=== PATIENT | female | born 1945 | race Caucasian/White ===

== ENCOUNTER 2020-03-31 10:12 | Emergency (ER) | payer MEDICARE, SELFPAY ==
[2020-03-31 10:47] VITALS: BP 158/68; PULSE 93; RESP 18; TEMP 36.9; O2SAT 96; BMI 25.7
--- NOTE | 2020-03-31 12:10 | ED.BACK ---
HPI - Back Pain/Injury General Chief Complaint: Back Pain/Injury Stated Complaint: BACK PAIN Time Seen by Provider: 03/31/20 11:50 Source: patient Mode of arrival: ambulatory Limitations: no limitations History of Present Illness HPI Narrative: 74-year-old female presents to emergency department for evaluation of left lower back pain. The patient states that morning (3 days prior to evaluation) she was at home, turned and had sudden onset of left lower back pain. She states that since that time the pain has been a constant, dull, throbbing a which is worse with movement. The pain does radiate to her left buttocks but does not radiate down her left leg. She denies numbness or weakness of the left leg. The patient states that she took Aleve 1 pill twice a day for a day with no relief of her pain. She states that today she took extra-strength Tylenol without any relief her pain. She has been using heat with no relief. She denied fever, chills, chest pain, shortness of breath, rash. Related Data Home Medications Medication Instructions Recorded Confirmed flu vacc 2020-21(65yr ml IM 02/24/20 02/24/20 up)-MF59C(PF) 60 mcg(15 mcgx4)/0.5 mL IM syringe tretinoin 0.025 % topical cream applic TOPICAL BEDTIME PRN 02/24/20 02/24/20 Previous Rx's Medication Instructions Recorded azithromycin 250 mg tablet See Rx Instructions PO .COMPLEX #6 01/27/20 tab amlodipine 2.5 mg tablet 2.5 mg PO DAILY #90 tab 03/25/20 Allergies Allergy/AdvReac Type Severity Reaction Status Date / Time No Known Allergies Allergy Verified 03/31/20 10:49 Review of Systems Review of Systems: Yes all other systems are reviewed and are negative Constitutional: Constitutional: Reports as per HPI Eyes: Eyes: Reports as per HPI ENT: Reports as per HPI Cardiovascular: Cardiovascular: Reports as per HPI Respiratory: Respiratory: Reports as per HPI Gastrointestinal: Gastrointestinal: Reports as per HPI Genitourinary: Genitourinary: Reports as per HPI Musculoskeletal: Musculoskeletal: Reports as per HPI Integumentary/Breasts: Skin/Breast: Reports as per HPI Neurologic: Reports as per HPI and Reports Abnormal speech present Psychiatric: Psychiatric: Reports as per HPI Allergic/Immunologic: Allergic/Immunologic: Reports as per HPI PMF Past Medical History Attestation statement: The following information was validated with the patient. [facility] Narrative: Patient has a history of hypertension, high cholesterol and GERD. She denies tobacco, alcohol and drug use., Medical History High blood pressure Social History Social History Advance Directives: No Advance Directives Information Provided: Yes Physical Exam Vital Signs: Vital Signs: Last Vital Signs Temp 98.5 F 03/31/20 10:47 Pulse 93 03/31/20 10:47 Resp 18 03/31/20 10:47 BP 158/68 H 03/31/20 10:47 Pulse Ox 96 03/31/20 10:47 Body Mass Index 25.7 Const: General: cooperative and healthy appearing Nutritional Appearance: average body habitus Orientation/consciousness: oriented to person and oriented to place Limitations: no limitations HENMT: Head: Yes normal to inspection, Yes normocephalic and Yes atraumatic Ears: external ears normal General nose exam: Normal external nose present Face and sinus: Yes normal facial exam Mouth: Normal oral and palatal mucosa present Throat: Yes posterior oropharynx normal Eyes: General: appearance normal, both eyes and all related structures Alignment and Position: alignment normal Periorbital: periorbital findings normal Eyelids: Yes eyelids normal Conjunctivae: conjunctivae normal Sclerae: sclerae normal Pupils: Equal, round and reactive pupils present Direct Ophthalmoscopy: normal light reflex Neck: Neck: Yes normal visual inspection and Yes supple Thyroid: Thyroid normal Chest: Chest palpation & inspection: normal inspection of the chest and normal palpation of entire chest wall Resp: Effort & Inspection: normal respiratory effort and able to speak in complete sentences Auscultation: clear to auscultation bilaterally, no crackles, no rales and no rhonchi Cardio: Rate: regular rate Rhythm: regular rhythm Heart sounds: S1 normal heart sound present, S2 normal heart sound present and no murmurs GI: Inspection: Yes normal to inspection Palpation (GI): Soft to palpation, nontender and no guarding Auscultation: normal bowel sounds : General: Yes no CVA tenderness Back/Spine/Pelvis: Back: no CVA tenderness Cervical Spine: normal cervical lordosis Thoracic/Lumbar Spine: thoracic and lumbar spine normal to inspection, straight leg raise negative bilaterally and paraspinal muscle tenderness on the left in the lower lumbar Skin: General skin exam: no rashes or lesions noted Lesions: no lesions Rashes: no rashes Trauma: no lacerations or abrasions Neuro: General: oriented to person and oriented to place Cranial nerves: Yes CN's II-XII intact bilaterally and Yes Equal, round and reactive pupils present Cognition (Neuro): normal cognition Speech: Abnormal speech present Motor exam (neuro): 5/5 motor strength present throughout Extrem: General: Yes normal to inspection and Yes full ROM Psych: Appearance: grossly normal and well kempt Mental Status: mental status grossly normal Speech and movement: Normal speech and movement present Affect: normal affect Attitude: cooperative Thought process: Normal thought process present Thought content: Normal thought content present Insight: Good insight present (Psych) Judgement: Good judgement present (Psych) Course Course Course Narrative: 74-year-old female who presents emergency department for evaluation of left lower back pain times 3 days, the pain is worse with movement. The patient had no numbness or weakness of her lower extremity and no signs of systemic illness. Her exam did reveal tenderness with palpation of the paraspinal muscles over the lumbar sacral area. Patient's presentation is consistent with muscle strain and I did discuss this with her. She was advised to take Aleve 1 pill twice a day and extra-strength Tylenol 2 pills every 4-6 hours as needed for pain. She was advised to use ice and heat. She was advised to follow up with the doctor in 2 days and return to the emergency department if her symptoms get worse or strokes in the symptoms are concerning to her. Discharge Plan Discharge Clinical Impression: Strain of lumbar region Patient Disposition: Home, Self-Care Instructions: Low Back Strain (ED) Additional Instructions: Apply ice for 15 minutes, wait 15 minutes and then apply heat for 15 minutes, repeat this every 4 hours for the next 1-2 days to help reduce the pain in your lower back. Take Aleve 1 pill twice a day for 3-4 days to help reduce the inflammation in your back muscles. Also take extra-strength Tylenol 500 mg pills, 2 pills every 4-6 hours for pain in her lower back. Buy [id number] lidocaine patches Prescriptions: No Action azithromycin 250 mg tablet See Rx Instructions PO .COMPLEX Qty: 6 RF: 0 amlodipine 2.5 mg tablet 2.5 mg PO DAILY Qty: 90 RF: 1 Fluad Quad 2020-(65y up)(PF) 60 mcg (15 mcg x 4)/0.5 mL syringe IM RF: 0 tretinoin 0.025 % cream topical BEDTIME PRN (Reason: itch) RF: 0
== END 2020-03-31 12:30 | disposition home or self-care (01) ==
PROVIDERS: Emergency Provider Emergency Medicine Emergency Medical Services; PCP Internal Medicine
DX: S39.012A Strain of muscle, fascia and tendon of lower back, initial encounter (principal); X50.1XXA Overexertion from prolonged static or awkward postures, initial encounter; I10 Essential (primary) hypertension; Y93.9 Activity, unspecified; Y92.019 Unspecified place in single-family (private) house as the place of occurrence of the external cause; Y99.9 Unspecified external cause status
CPT/HCPCS: 99283

== ENCOUNTER 2020-04-12 07:49 | Outpatient (REF) | payer MEDICARE, SELFPAY ==
[2020-04-12 08:29] LABS: MANUAL DIFF FLAG NO
[2020-04-12 08:34] LABS: White Blood Count 7.3 X10*3/uL (4.8-10.8)
[2020-04-12 08:35] LABS: Basophils Absolute Auto 0.1 X10*3/uL (0.0-0.2); Basophils Percent Auto 0.7 % (0-2); Eosinophils Absolute Auto 0.2 X10*3/uL (0.0-0.4); Eosinophils Percent Auto 2.7 % (0-4); Hematocrit 40.7 % (37-47); Hemoglobin 13.4 g/dl (12.0-16.0); Imm Gran Abs Auto 0.01 X10*3/uL (0.00-0.03); Imm Gran Pct Auto 0.1 % (0.0-0.4); Lymphocytes Absolute Auto 1.9 X10*3/uL (1.2-4.9); Lymphocytes Percent Auto 26.5 % (20-40); Mean Corpuscular HGB Conc 32.9 g/dl (31.0-35.0); Mean Corpuscular Hemoglobin 30.7 pg (27.0-33.0); Mean Corpuscular Volume 93.1 fL (80-98); Mean Platelet Volume 9.5 fL (9.4-12.3); Monocytes Absolute Auto 0.5 X10*3/uL (0.1-1.2); Monocytes Percent Auto 7.2 % (2-11); Neutrophils Absolute Auto 4.6 X10*3/uL (2.0-8.3); Neutrophils Percent Auto 62.8 % (45-73); Platelet Count 392 X10*3/uL (160-400); Red Blood Count 4.37 X10*6/uL (4.20-5.50); Red Cell Distribution Width 11.6 % (11.0-16.0)
[2020-04-12 08:40] LABS: Glucose Urine UA NEG (NEG); Leukocyte Esterase Urine TRACE (NEG); Nitrite Urine NEG (NEG); Urine Blood TRACE (NEG); Urine Ketones NEG (NEG); Urine Protein NEG (NEG-TRACE)
[2020-04-12 08:44] LABS: Appearance Urine CLEAR; Color Urine YELLOW
[2020-04-12 08:44] LABS: Estimated Average Glucose 105 mg/dL; Hemoglobin A1c % 5.3 %
[2020-04-12 08:53] LABS: RBC Urine 0-2 /HPF (0); Squamous Epithelial Cell Urine TRACE /LPF; WBC Urine 0-2 /HPF (0-4)
[2020-04-12 09:03] LABS: Alanine Aminotransferase 19 U/L (0-31); Albumin Level 4.2 g/dL (3.5-5.0); Alkaline Phosphatase 87 U/L (39-117); Anion Gap 14 (12-20); Aspartate Amino Transferase 20 U/L (5-31); Bilirubin Total 0.5 mg/dL (0.0-1.0); Blood Urea Nitrogen 16 mg/dL (9-16); Calcium 9.2 mg/dL (8.4-10.2); Carbon Dioxide 28 mmol/L (22-29); Chloride 101 mmol/L (96-108); Cholesterol 197 mg/dL; Estimated Glomerular Filt Rate > 60; Glucose Fasting 96 mg/dL (60-99); HDL Cholesterol 49 mg/dL; LDL Cholesterol Calculated 120 mg/dl; Potassium 4.8 mmol/l (3.3-5.1); Sodium 138 mmol/L (135-145); Total Protein 7.5 g/dL (6.5-8.0); Triglycerides 144 mg/dL
== END 2020-04-12 07:50 | disposition home or self-care (01) ==
LOC: HO.LAB 07:49
PROVIDERS: PCP Internal Medicine; Visit Provider Internal Medicine
DX: I10 Essential (primary) hypertension (principal); E78.2 Mixed hyperlipidemia; R73.01 Impaired fasting glucose; D50.9 Iron deficiency anemia, unspecified; K21.9 Gastro-esophageal reflux disease without esophagitis; E66.3 Overweight
CPT/HCPCS: 36415; 80053; 80061; 81001; 83036; 84443; 85025; 87086

== ENCOUNTER 2021-04-25 08:12 | Outpatient (REF) | payer MEDICARE, SELFPAY ==
[2021-04-25 08:44] LABS: MANUAL DIFF FLAG NO
[2021-04-25 09:08] LABS: Appearance Urine CLEAR; Color Urine STRAW; Glucose Urine UA NEG (NEG); Leukocyte Esterase Urine NEG (NEG); Nitrite Urine NEG (NEG); UACC Culture Trigger NO; Urine Blood TRACE (NEG); Urine Ketones NEG (NEG); Urine Protein NEG (NEG-TRACE)
[2021-04-25 09:12] LABS: Basophils Percent Auto 0.6 % (0-2); Eosinophils Absolute Auto 0.2 X10*3/uL (0.0-0.4); Eosinophils Percent Auto 2.2 % (0-4); Hematocrit 40.3 % (37.0-47.0); Hemoglobin 13.4 g/dl (12.0-16.0); Imm Gran Abs Auto 0.03 X10*3/uL (0.00-0.03); Imm Gran Pct Auto 0.4 % (0.0-0.4); Lymphocytes Absolute Auto 1.8 X10*3/uL (1.2-4.9); Lymphocytes Percent Auto 24.5 % (20-40); Mean Corpuscular HGB Conc 33.3 g/dl (31.0-35.0); Mean Corpuscular Volume 93.3 fL (80.0-98.0); Mean Platelet Volume 9.8 fL (9.4-12.3); Monocytes Absolute Auto 0.5 X10*3/uL (0.1-1.2); Monocytes Percent Auto 7.3 % (2-11); Neutrophils Absolute Auto 4.6 x10*3/uL (2.0-8.3); Platelet Count 347 X10*3/uL (160-400); Red Blood Count 4.32 X10*6/uL (4.20-5.50); Red Cell Distribution Width 11.7 % (11.0-16.0); White Blood Count 7.1 X10*3/uL (4.8-10.8)
[2021-04-25 09:18] LABS: Squamous Epithelial Cell Urine TRACE /LPF
[2021-04-25 09:19] LABS: RBC Urine 0-2 /HPF (0); WBC Urine 0-2 /HPF (0-4)
[2021-04-25 09:32] LABS: Alanine Aminotransferase 11 U/L (0-31); Alkaline Phosphatase 96 U/L (39-117); Anion Gap 12 (12-20); Aspartate Amino Transferase 15 U/L (5-31); Bilirubin Total 0.5 mg/dL (0.0-1.0); Blood Urea Nitrogen 14 mg/dL (9-16); Calcium 9.6 mg/dL (8.4-10.2); Carbon Dioxide 29 mmol/L (22-29); Chloride 105 mmol/L (96-108); Cholesterol 212 mg/dL; Estimated Glomerular Filt Rate > 60; Glucose Fasting 100 mg/dL (60-99); HDL Cholesterol 46 mg/dL; LDL Cholesterol Calculated 137 mg/dl; Potassium 4.7 mmol/L (3.3-5.1); Sodium 141 mmol/L (135-145); Total Protein 7.4 g/dL (6.5-8.0); Triglycerides 149 mg/dL
[2021-04-25 09:56] LABS: TSH reflex Free T4 2.11 uIU/mL (0.32-4.0); Vitamin D 25-OH Total 47.3 ng/mL (>30)
== END 2021-04-25 08:13 | disposition home or self-care (01) ==
LOC: HO.LAB 08:12
PROVIDERS: PCP Internal Medicine; Visit Provider Internal Medicine
DX: I10 Essential (primary) hypertension (principal); K21.9 Gastro-esophageal reflux disease without esophagitis; E78.00 Pure hypercholesterolemia, unspecified; E66.3 Overweight; E55.9 Vitamin D deficiency, unspecified; M85.80 Other specified disorders of bone density and structure, unspecified site
CPT/HCPCS: 36415; 80053; 80061; 81001; 82306; 84443; 85025

== ENCOUNTER 2021-05-09 10:21 | Outpatient (REF) | payer MEDICARE, SELFPAY ==
--- NOTE | ~2021-05-09 | XR_ITS ---
EXAMINATION: XR KNEE, RIGHT XR KNEE, LEFT CLINICAL INFORMATION: Effusion COMPARISON: None TECHNIQUE: 4 views of each knee FINDINGS: Left knee: No fracture or subluxation. Compartmental joint spaces are maintained. Small marginal osteophytes of the patellofemoral compartment. Enthesophyte formation of the patella. No joint effusion. Right knee: No fracture or subluxation. Mild medial compartment joint space narrowing. Enthesophyte formation of the patella with small marginal osteophytes. No joint effusion. XR/XR knee RT 3V IMPRESSION: No joint effusion. Mild degenerative changes of the knees as above.
--- NOTE | ~2021-05-09 | XR_ITS ---
EXAMINATION: XR KNEE, RIGHT XR KNEE, LEFT CLINICAL INFORMATION: Effusion COMPARISON: None TECHNIQUE: 4 views of each knee FINDINGS: Left knee: No fracture or subluxation. Compartmental joint spaces are maintained. Small marginal osteophytes of the patellofemoral compartment. Enthesophyte formation of the patella. No joint effusion. Right knee: No fracture or subluxation. Mild medial compartment joint space narrowing. Enthesophyte formation of the patella with small marginal osteophytes. No joint effusion. XR/XR knee LT 3V IMPRESSION: No joint effusion. Mild degenerative changes of the knees as above.
== END 2021-05-09 10:22 | disposition home or self-care (01) ==
LOC: HO.XRAY 10:21
PROVIDERS: PCP Internal Medicine; Visit Provider Internal Medicine
DX: M25.461 Effusion, right knee (principal); M25.462 Effusion, left knee
CPT/HCPCS: 73562

== ENCOUNTER 2022-01-14 08:08 | Outpatient (REF) | payer MEDICARE, SELFPAY ==
[2022-01-14 09:03] LABS: Alanine Aminotransferase 10 U/L (0-31); Alkaline Phosphatase 92 U/L (39-117); Anion Gap 13 (12-20); Aspartate Amino Transferase 15 U/L (5-31); Bilirubin Total 0.4 mg/dL (0.0-1.0); Blood Urea Nitrogen 13 mg/dL (9-16); Calcium 9.3 mg/dL (8.4-10.2); Carbon Dioxide 29 mmol/L (22-29); Chloride 105 mmol/L (96-108); Cholesterol 215 mg/dL; Estimated Glomerular Filt Rate > 60; Glucose Fasting 101 mg/dL (60-99); HDL Cholesterol 44 mg/dL; LDL Cholesterol Calculated 130 mg/dl; Potassium 4.6 mmol/L (3.3-5.1); Sodium 142 mmol/L (135-145); Total Protein 7.1 g/dL (6.5-8.0); Triglycerides 207 mg/dL
[2022-01-14 14:43] LABS: Appearance Urine Clear; Color Urine Yellow; Glucose Urine UA Negative (Negative); Leukocyte Esterase Urine Negative (Negative); Nitrite Urine Negative (Negative); PH 5.5 (5.0-9.0); Specific Gravity - Urine <= 1.005 (1.005-1.025); Urine Blood Negative (Negative); Urine Ketones Negative (Negative); Urine Protein Negative (Neg-Trace)
== END 2022-01-14 08:09 | disposition home or self-care (01) ==
LOC: HO.LAB 08:08
PROVIDERS: PCP Internal Medicine; Visit Provider Internal Medicine
DX: I10 Essential (primary) hypertension (principal); E78.00 Pure hypercholesterolemia, unspecified
CPT/HCPCS: 36415; 80053; 80061; 81003

== ENCOUNTER 2022-08-13 08:05 | Outpatient (REF) | payer MEDICARE, SELFPAY ==
[2022-08-13 08:28] LABS: MANUAL DIFF FLAG NO
[2022-08-13 08:43] LABS: Basophils Absolute Auto 0.1 X10*3/uL (0.0-0.2); Basophils Percent Auto 0.7 % (0-2); Eosinophils Absolute Auto 0.2 X10*3/uL (0.0-0.4); Eosinophils Percent Auto 2.7 % (0-4); Hematocrit 40.1 % (37.0-47.0); Hemoglobin 13.5 g/dl (12.0-16.0); Imm Gran Abs Auto 0.01 X10*3/uL (0.00-0.03); Imm Gran Pct Auto 0.1 % (0.0-0.4); Lymphocytes Percent Auto 26.7 % (20-40); Mean Corpuscular HGB Conc 33.7 g/dl (31.0-35.0); Mean Corpuscular Hemoglobin 31.5 pg (27.0-33.0); Mean Corpuscular Volume 93.7 fL (80.0-98.0); Mean Platelet Volume 9.6 fL (9.4-12.3); Monocytes Absolute Auto 0.6 X10*3/uL (0.1-1.2); Monocytes Percent Auto 7.5 % (2-11); Neutrophils Absolute Auto 4.6 x10*3/uL (2.0-8.3); Neutrophils Percent Auto 62.3 % (45-73); Platelet Count 328 X10*3/uL (160-400); Red Blood Count 4.28 X10*6/uL (4.20-5.50); Red Cell Distribution Width 11.8 % (11.0-16.0); White Blood Count 7.3 X10*3/uL (4.8-10.8)
[2022-08-13 09:48] LABS: Alanine Aminotransferase 16 U/L (0-31); Albumin Level 4.1 g/dL (3.5-5.0); Alkaline Phosphatase 97 U/L (39-117); Anion Gap 11 (12-20); Aspartate Amino Transferase 17 U/L (5-31); Bilirubin Total 0.5 mg/dL (0.0-1.0); Blood Urea Nitrogen 17 mg/dL (9-16); Calcium 9.6 mg/dL (8.4-10.2); Carbon Dioxide 30 mmol/L (22-29); Chloride 107 mmol/L (96-108); Cholesterol 141 mg/dL; Estimated Glomerular Filt Rate > 60; Glucose Fasting 103 mg/dL (60-99); HDL Cholesterol 44 mg/dL; LDL Cholesterol Calculated 66 mg/dl; Potassium 5.1 mmol/L (3.3-5.1); Sodium 143 mmol/L (135-145); Triglycerides 157 mg/dL
[2022-08-13 09:56] LABS: TSH reflex Free T4 2.09 uIU/mL (0.32-4.0)
== END 2022-08-13 08:06 | disposition home or self-care (01) ==
LOC: HO.LAB 08:05
PROVIDERS: PCP Internal Medicine; Visit Provider Internal Medicine
DX: E78.00 Pure hypercholesterolemia, unspecified (principal); I10 Essential (primary) hypertension
CPT/HCPCS: 36415; 80053; 80061; 84443; 85025

== ENCOUNTER 2022-09-03 08:53 | Outpatient (REF) | payer MEDICARE, SELFPAY ==
--- NOTE | ~2022-09-03 | MM_ITS ---
EXAMINATION: BONE DENSITOMETRY CLINICAL INDICATION: Menopausal and female climacteric states. COMPARISON: Previous BD dated 10/30/2017 and baseline BD dated 09/03/2006. TECHNIQUE: Using a [employer] DXA System (software version: 13.1) manufactured by [employer], dual-energy x-ray absorptiometry was performed of the lumbar spine and left hip. The images are of good technical quality. Summary results are attached. FINDINGS: AP SPINE L1-L4: Current: BMD 1.291 g/cm2, Z-score 2.4, T-score 0.9, normal, 1.2% decrease from previous, 5.2% decrease from baseline (<5% change is not significant). Prior: BMD 1.307 g/cm2. Baseline: BMD 1.362 g/cm2. LEFT FEMUR, NECK: Current: BMD 0.717 g/cm2, Z-score -0.4, T-score -2.3, osteopenia. Prior: BMD 0.855 g/cm2. Baseline: BMD 0.905 g/cm2. LEFT FEMUR, TOTAL: Current: BMD 0.860 g/cm2, Z-score 0.5, T-score -1.2, osteopenia, 12.9% decrease from previous, 18.4% decrease from baseline (<5% change is not significant). Prior: BMD 0.987 g/cm2. Baseline: BMD 1.054 g/cm2. IDENTIFIED RISK FACTORS: Menopause. HISTORY OF FRACTURE: None listed. MEDICATIONS: Multivitamin. MM/XR DEXA axial skeleton IMPRESSION: 1. DIAGNOSIS: Osteopenia based on the lowest T-score value of -2.3 in the femoral neck applying World Health Organization criteria. 2. 10-YEAR FRACTURE RISK PREDICTION, FRAX: Major osteoporotic fracture (clinical spine, forearm, hip or shoulder) 17.2%. Hip fracture 5.5%. 3. Treatment Recommendations: NOF guidelines recommend consideration for treatment in postmenopausal women and men age 50 and older presenting with the following: -A hip or vertebral (clinical or morphometric) fracture. -T-score less than or equal to -2.5 at the femoral neck or spine after appropriate evaluation to exclude secondary causes. -Low bone mass at the hip or spine and a 10-year fracture probability by FRAX of greater than or equal to 3% for hip fracture or greater than or equal to 20% for major osteoporotic fracture based on the [place] adapted WHO algorithm. 4. Other Recommendations: All treatment decisions require clinical judgment and consideration of individual patient factors, including patient preferences, comorbidities, previous drug use, risk factors not captured in the FRAX model (e.g. frailty, falls, vitamin D deficiency, increased bone turnover, interval significant decline in bone density) and possible under or overestimation of fracture risk by FRAX. Additional medical evaluation for secondary cause of low bone mineral density may be appropriate. FUTURE SCAN RECOMMENDATION: People with diagnosed cases of osteoporosis or at high risk for fracture should have regular bone mineral density tests. For patients eligible for Medicare, routine testing is allowed once every 2 years. The testing frequency can be increased to one year for patients who have rapidly progressing disease, those who are receiving or discontinuing medical therapy to restore bone mass, or have additional risk factors.
== END 2022-09-03 08:54 | disposition home or self-care (01) ==
LOC: HO.MAMMO 08:53
PROVIDERS: PCP Internal Medicine; Visit Provider Internal Medicine
DX: Z13.820 Encounter for screening for osteoporosis (principal); M85.88 Other specified disorders of bone density and structure, other site; N95.1 Menopausal and female climacteric states
CPT/HCPCS: 77080

== ENCOUNTER 2023-01-15 12:45 | Outpatient (AMB) | payer MEDICARE, SELFPAY ==
--- NOTE | 2023-01-15 12:54 | AM.OFFWIN_ITS ---
Intake Vital Signs 01/15/23 12:55 Height 5 ft 5 in Weight 162 lb 4 oz BMI 27.0 BP 170/70 H Blood Pressure Location Rt brachial Pulse 98 Pulse Source Pulse Oximeter Temp 96.4 F L Temp Source Temporal Artery Scan Pulse Oximetry (%) 100 Oxygen Delivery Method Room Air Intake Visit Reasons: EP Cough 10 days (masked) Intake Note: Pt is here c/o cough for the past 10 days. Patient Tobacco Use Status: Former Tobacco user Allergies No Known Allergies Allergy (Verified 01/15/23 12:54) Do you need a note to return to daycare/school/sports/work: No HPI EP Cough 10 days (masked) HPI Details 77[facility]. Reports a 10 day history persistent cough. She feels that she has some secretions in her upper airways, however cannot effectively clear them. She reports a fever the first 2 days of illness, which resolved with Tylenol, and no fever has recurred since. She reports nasal congestion and facial pressure. Denies any shortness of breath or wheezing. Denies any GI symptoms. Tested for COVID x4 the last days, all of which were negative. Has taken Delsym otc and Benzonatate from PCP Dr. Ruiz with some minor benefit. [facility] Medical History Overweight (BMI 25.0-29.9) Osteopenia GERD without esophagitis Pure hypercholesterolemia Benign essential hypertension Surgical History History of colonoscopy History of appendectomy History of bunionectomy Family History Father Chronic mental illness Mother Diabetes Hypertension Cancer Social History Housing: House Alcohol intake: never Patient Tobacco Use Status: Former Tobacco user e-Cigarette/Vaping Use: Never Used Second Hand Smoke Exposure: Yes service: No Current occupational status: retired Cognitive needs: No Hearing needs: No Vision needs: Yes Review of Systems Const All systems reviewed & are unremarkable except as noted in HPI and below Physical Exam Const General: cooperative, healthy appearing, comfortable and no acute distress Nutritional Appearance: average body habitus HEENT Head: Yes normal to inspection Ears: hearing grossly normal bilaterally General nose exam: Normal external nose present and Normal nasal mucous membranes and turbinates present Face and sinus: Yes sinus tenderness (maxillary) Mouth: Normal oral and palatal mucosa present and moist mucous membranes Throat: Yes posterior oropharynx normal Neck Neck: Yes no lymphadenopathy Resp Effort & Inspection: normal respiratory effort, able to speak in complete sentences and Actively coughing Quality: dry Auscultation: clear to auscultation bilaterally Cardio Jugular venous distension: no JVD Palpation: normal PMI Rate: regular rate Rhythm: regular rhythm Skin General skin exam: no rashes or lesions noted Extrem General: Yes capillary refill normal and Yes no clubbing, cyanosis or edema Psych Appearance: grossly normal Mental Status: mental status grossly normal Speech and movement: Normal speech and movement present Assessment & Plan Assessment & Plan (1) Acute bronchitis: Code(s): J20.9 - Acute bronchitis, unspecified Qualifiers: Bronchitis organism: unspecified organism Qualified Code(s): J20.9 - Acute bronchitis, unspecified Plan: Advised patient to continue to utilize benzonatate and Delsym prn. Given then duration of illness, I will start her on a short course of antibiotics. We reviewed indications, use, possible side effects of these. Advised continued rest, hydration. If she does not improve with treatment and conservative measures, or if symptoms worsen, she should return to the clinic or see PCP for further evaluation. She verbalizes understanding and agrees to plan. Medications: New azithromycin For 250 mg dose pack: take 500 mg today (day 1), then 250 mg for 4 days (days 2-5) PO 6 tabs 0RF J20.9 - Acute bronchitis, unspecified Coding Level of Care Code Est Pt Level 3 (86893) Diagnoses Acute bronchitis, unspecified organism J20.9 Bronchitis organism: unspecified organism
[2023-01-15 12:55] VITALS: BP 170/70; PULSE 98; TEMP 35.8; O2SAT 100; BMI 27.0
== END 2023-01-15 13:17 | disposition home or self-care (01) ==
PROVIDERS: PCP Internal Medicine; Visit Provider Nurse Practitioner Family
DX: J20.9 Acute bronchitis, unspecified (principal)
CPT/HCPCS: 99213

== ENCOUNTER 2023-02-18 07:34 | Outpatient (REF) | payer MEDICARE, SELFPAY ==
[2023-02-18 07:52] LABS: MANUAL DIFF FLAG NO
[2023-02-18 08:41] LABS: Basophils Absolute Auto 0.1 X10*3/uL (0.0-0.2); Basophils Percent Auto 0.7 % (0-2); Eosinophils Absolute Auto 0.2 X10*3/uL (0.0-0.4); Eosinophils Percent Auto 3.1 % (0-4); Hematocrit 39.4 % (37.0-47.0); Hemoglobin 13.1 g/dl (12.0-16.0); Imm Gran Abs Auto 0.02 X10*3/uL (0.00-0.03); Imm Gran Pct Auto 0.3 % (0.0-0.4); Lymphocytes Absolute Auto 1.9 X10*3/uL (1.2-4.9); Lymphocytes Percent Auto 25.4 % (20-40); Mean Corpuscular HGB Conc 33.2 g/dl (31.0-35.0); Mean Corpuscular Hemoglobin 31.6 pg (27.0-33.0); Mean Corpuscular Volume 94.9 fL (80.0-98.0); Mean Platelet Volume 10.2 fL (9.4-12.3); Monocytes Absolute Auto 0.6 X10*3/uL (0.1-1.2); Monocytes Percent Auto 7.7 % (2-11); Neutrophils Absolute Auto 4.7 x10*3/uL (2.0-8.3); Neutrophils Percent Auto 62.8 % (45-73); Platelet Count 346 X10*3/uL (160-400); Red Blood Count 4.15 X10*6/uL (4.20-5.50); Red Cell Distribution Width 11.7 % (11.0-16.0); White Blood Count 7.5 X10*3/uL (4.8-10.8)
[2023-02-18 08:48] LABS: Estimated Average Glucose 108 mg/dL; Hemoglobin A1c % 5.4 % (<6.0)
[2023-02-18 09:44] LABS: Alanine Aminotransferase 14 U/L (0-31); Albumin Level 4.1 g/dL (3.5-5.0); Alkaline Phosphatase 99 U/L (39-117); Anion Gap 12 (12-20); Aspartate Amino Transferase 18 U/L (5-31); Bilirubin Total 0.5 mg/dL (0.0-1.0); Blood Urea Nitrogen 14 mg/dL (9-16); Calcium 9.3 mg/dL (8.4-10.2); Carbon Dioxide 28 mmol/L (22-29); Chloride 105 mmol/L (96-108); Cholesterol 145 mg/dL (<200); Estimated Glomerular Filt Rate > 60; Glucose Fasting 103 mg/dL (60-99); HDL Cholesterol 43 mg/dL (>40); LDL Cholesterol Calculated 74 mg/dL (<100); Potassium 4.4 mmol/L (3.3-5.1); Sodium 141 mmol/L (135-145); Total Protein 7.5 g/dL (6.5-8.0); Triglycerides 142 mg/dL (<150)
[2023-02-18 09:50] LABS: TSH reflex Free T4 2.57 uIU/mL (0.32-4.0); Vitamin D 25-OH Total 51.4 ng/mL (>30)
[2023-02-18 11:49] LABS: Appearance Urine Clear; Color Urine Yellow; Glucose Urine UA Negative (Negative); Leukocyte Esterase Urine Small (1+) (Negative); Nitrite Urine Negative (Negative); PH 6.5 (5.0-9.0); Specific Gravity - Urine <= 1.005 (1.005-1.025); UMIC TRIGGER UACC YES; Urine Blood Negative (Negative); Urine Ketones Negative (Negative); Urine Protein Negative (Neg-Trace)
[2023-02-18 11:57] LABS: Bacteria Urine None Seen (None Seen); Hyaline Casts Urine 0-2 /LPF (0-2); RBC Urine 0-2 /HPF (0-2); Squamous Epithelial Cell Urine 0-2 /HPF (0-2); UACC Culture Trigger YES; WBC Urine 0-5 /HPF (0-5)
== END 2023-02-18 07:35 | disposition home or self-care (01) ==
LOC: HO.LAB 07:34
PROVIDERS: PCP Internal Medicine; Visit Provider Internal Medicine
DX: R73.01 Impaired fasting glucose (principal); I10 Essential (primary) hypertension; E55.9 Vitamin D deficiency, unspecified; E78.00 Pure hypercholesterolemia, unspecified; R30.0 Dysuria
CPT/HCPCS: 36415; 80053; 80061; 81001; 82306; 83036; 84443; 85025; 87086

== ENCOUNTER 2023-02-23 16:33 | Outpatient (AMB) | payer MEDICARE, SELFPAY ==
[2023-02-23 16:35] VITALS: BP 142/82; PULSE 92; O2SAT 98; BMI 26.9
--- NOTE | 2023-02-23 16:35 | MHC.PC.OV ---
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 by: Self / Same As Patient Allergies No Known Allergies Allergy (Verified 02/23/23 17:02) Medication List - Last Reconciled 02/23/23 by Preston Ruiz MD acetaminophen (Tylenol Extra Strength) 500 mg PO Q6H PRN amlodipine 2.5 mg PO DAILY atorvastatin 10 mg PO BEDTIME 90 days Tobacco use date assessed: 02/23/23 Fall risk assessment: No Falls in past year Last assessed Fall Risk: 02/23/23 Dental Screening Dental Screen Date: 02/23/23 Did you have a dental visit in the last 12 months?: Yes Did you have a dental problem in the last 6 months where you did not have access to dental care?: No Was dental information given to patient?: Patient has dentist HPI HTN, hyperlipidemia, IFG, osteopenia HPI Details Patient comes in today for her follow up visit States that she feels okay She denies any headaches or dizziness Denies any chest pains although she still has some lingering cough occasionally but her cough is mostly nonproductive Recalls that she went to the walk-in clinic in [place] last month for a recurrent cough that she has had for at least a couple of weeks august and was prescribed Z-Wade although she did not start taking this until a couple of weeks later when her cough persisted and got worse States that she finished her antibiotic treatment about 2 weeks ago and is feeling a lot better after finishing her antibiotics although she still has the aforementioned lingering cough off and on; denies any shortness of breath No nausea/ vomiting, no abdominal pain No change in bowel habits noted Had her follow up labs done a few days ago - to discuss her results [facility] Medical History Overweight (BMI 25.0-29.9) Osteopenia GERD without esophagitis Pure hypercholesterolemia Benign essential hypertension Surgical History History of colonoscopy History of appendectomy History of bunionectomy Family History Father Chronic mental illness Mother Diabetes Hypertension Cancer Social History Housing: House Alcohol intake: never Patient Tobacco Use Status: Former Tobacco user e-Cigarette/Vaping Use: Never Used Second Hand Smoke Exposure: Yes service: No Current occupational status: retired Cognitive needs: No Hearing needs: No Vision needs: Yes Questionnaire PHQ-9 Over the last 2 weeks, how often have you been bothered by any of the following problems? 1. Little interest or pleasure in doing things: not at all 2. Feeling down, depressed, or hopeless: not at all 3. Trouble falling or staying asleep, or sleeping too much: not at all 4. Feeling tired or having little energy: not at all 5. Poor appetite or overeating: not at all 6. Feeling bad about yourself - or that you are a failure or have let yourself or your family down: not at all 7. Trouble concentrating on things, such as reading the newspaper or watching television: not at all 8. Moving or speaking so slowly that other people could have noticed. Or the opposite - being so fidgety or restless that you have been moving around a lot more than usual: not at all 9. Thoughts that you would be better off or of hurting yourself in some way: not at all Total score: 0 Depression Screening Interpretation: Negative Depression Screening Done: Yes [id number] - PHQ-9 Billing: Yes Source: Developed by Drs. Perez Dallas, Meliza Jessica, Charli Mora and colleagues, with an educational franklin from [email or web address]. Thrive Questionnaire Date Thrive assessed: 02/23/23 I am a: Patient What is your living situation today?: I have a steady place to live Within the past 12 months, did the food you bought not last and you didn't have the money to get more?: Never true Within the past 12 months, did you worry whether your food would run out before you got money to buy more?: Never true Do you have trouble paying for medicines?: No Do you have trouble getting transportation to medical appointments?: No Do you have trouble paying your heating and electricity bill?: No Do you have trouble taking care of your child, family member or friend?: No Do you have trouble with day-to-day activities such as bathing, preparing meals, shopping, managing finances, etc.?: No Are you currently unemployed and looking for a job?: No Are you interested in more education?: No Please select the resources that you would like help with: None Currently or been in a relationship where the following occur: no concerns reported AUDIT C Alcohol Use Questionnaire (AUDIT-C) 1. How often do you have a drink containing alcohol?: Never 3. How often do you have six or more drinks on one occasion?: Never Total Score: 0 Score Reviewed/Action Taken: Yes NISHA-7 AMB Questionnaire NISHA-7 Date NISHA - 7 assessed: 02/23/23 Feeling nervous, anxious, or on edge: 0 = Not at all Not being able to stop or control worryin = Not at all Worrying too much about different things: 0 = Not at all Trouble relaxin = Not at all Being so restless that it is hard to sit still: 0 = Not at all Becoming easily annoyed or irritable: 0 = Not at all Feeling afraid as if something awful might happen: 0 = Not at all Total NISHA-7 score (0-4 normal; 5-9 mild; 10-14 moderate; 15-21 severe): 0 Source: Developed by Drs. Perez Dallas, Meliza Jessica, Charli Mora and colleagues, with an educational franklin from [email or web address]. Review of Systems Const Denies chills, Denies fatigue, Denies fever(s) and Denies headache(s) ENT Denies dysphagia, Denies dizziness, Denies otalgia, Denies headache(s), Denies odynophagia and Denies sore throat Card Denies chest pain, Denies palpitations and Denies dyspnea Resp Denies chest congestion, Reports cough (occasional, non-productive) and Denies dyspnea GI Denies abdominal pain, Denies constipation, Denies dysphagia, Denies heartburn, Denies diarrhea, Denies nausea, Denies odynophagia and Denies vomiting Denies difficulty voiding, Denies nocturia and Denies dysuria Musc Denies back pain, Denies arthralgias and Denies joint swelling Skin/Breast Denies rash Neuro Denies dizziness and Denies headache(s) Endo Denies fatigue and Denies palpitations Physical exam (Primary Care) Vital Signs: Last Vital Signs Pulse 92 02/23/23 16:35 BP 142/82 H 02/23/23 16:35 Pulse Ox 98 02/23/23 16:35 Oxygen Delivery Method Room Air 02/23/23 16:35 BMI result Body Mass Index 26.9 Tobacco/Smoking Status: Tobacco use Status Tobacco use date assessed 02/23/23 02/23/23 16:43 Patient Tobacco Use Status Former Tobacco user 02/23/23 16:43 e-Cigarette/Vaping Use Never Used 02/23/23 16:43 PHQ-9: PHQ-9 Score PHQ-9: Total score 0 02/23/23 17:03 Depression Screening Interpretation: Negative Thrive Assessment: Date of Thrive Assessment Date Thrive assessed 02/23/23 02/23/23 16:43 Currently or been in a relationship where the following occur: no concerns reported Const General: no acute distress and alert HENMT Ears: TM's normal bilaterally and EAC's normal Throat: Yes posterior oropharynx normal and Yes tonsils normal (no TP congestion noted) Neck Neck: Yes no lymphadenopathy and Yes supple Resp Auscultation: no rales, rhonchi throughout, no wheezes and diminished lung sounds (slightly) bilateral Cardio Rate: regular rate Rhythm: regular rhythm Heart sounds: no murmurs GI Palpation (GI): Soft to palpation and nontender Auscultation: normal bowel sounds General: Yes no CVA tenderness Back/Spine/Pelvis Back: no CVA tenderness Skin Rashes: no rashes Extrem General: Yes no clubbing, cyanosis or edema Right lower extremity: knee Details: swelling and normal ROM; no tenderness; joint enlargement noted Left lower extremity: no joint enlargement and knee Details: swelling and normal ROM; no tenderness Results Reviewed Results Reviewed: Laboratory Tests 02/18/23 02/18/23 02/18/23 07:50 07:50 09:15 WBC 7.5 Hgb 13.1 Hct 39.4 Plt Count 346 Sodium 141 Potassium 4.4 Creatinine 0.84 Estimated GFR > 60 Fasting Glucose 103 H Hemoglobin A1c % 5.4 Calcium 9.3 AST 18 ALT 14 Triglycerides 142 Cholesterol 145 LDL Cholesterol, Calc 74 HDL Cholesterol 43 25-OH Vitamin D Total 51.4 TSH 2.57 Urine pH 6.5 Ur Specific [place] <= 1.005 Urine Protein Negative Urine Glucose (UA) Negative Urine Blood 02/18/23 09:15 WBC Hgb Hct Plt Count Sodium Potassium Creatinine Estimated GFR Fasting Glucose Hemoglobin A1c % Calcium AST ALT Triglycerides Cholesterol LDL Cholesterol, Calc HDL Cholesterol 25-OH Vitamin D Total TSH Urine pH Ur Specific [place] Urine Protein Urine Glucose (UA) Urine Blood Negative Assessment and Plan Assessment & Plan (1) Benign essential hypertension: Code(s): I10 - Essential (primary) hypertension Plan: Reinforced low sodium diet - goal is systolic BP of at least 130 to 140 mm or less Continue Amlodipine 2.5 mg QD (2) Pure hypercholesterolemia: Code(s): E78.00 - Pure hypercholesterolemia, unspecified Plan: Results of her labs done a few days ago reviewed and discussed with patient Reinforced low cholesterol diet Continue Atorvastatin 10 mg QD Will recheck her labs and fasting lipids in 6 months for follow-up (3) Impaired fasting glucose: Code(s): R73.01 - Impaired fasting glucose Plan: FBS was still slightly elevated on her recent labs but her HgbA1c is normal at 5.4% Reinforced low calorie diet/exercise as tolerated (4) GERD without esophagitis: Code(s): K21.9 - Gastro-esophageal reflux disease without esophagitis Plan: Dietary restrictions reinforced (5) Osteopenia: Code(s): M85.80 - Other specified disorders of bone density and structure, unspecified site Qualifiers: Osteopenia location: unspecified Qualified Code(s): M85.80 - Other specified disorders of bone density and structure, unspecified site Plan: Repeat BMD done in August 2022 revealed (+) osteopenia based on the lowest T-score value of -2.3 in the femoral neck (T-score was at -1.3 in October 2017) Advised patient that the BMD in her AP spine is mostly unchanged from previous but her left femur BMD has declined significantly by 12.9% from 2018 She is again encouraged to continue to stay active and exercise regularly and continue on her Calcium and Vitamin D supplements daily Advised that due to her BMD decline, she should consider starting on medications for osteopenia (6) Bronchitis: Code(s): J40 - Bronchitis, not specified as acute or chronic Plan: She is advised that based on auscultation of her lungs, she appears to still have some lingering chest congestion currently Patient does report experiencing on and off cough and admits now that she still feels some congestion in her lungs at times, especially with increased exertion Will go ahead and start her again on another course of Z-Wade x 5 days Patient is advised to call back if she still does not experience any significant improvement of her symptoms /relief after she finishes her antibiotic course (7) Overweight (BMI 25.0-29.9): Code(s): E66.3 - Overweight Plan: Reinforced diet/exercise as tolerated/lose weight Plan Follow up in 6 months Orders: Orders Comprehensive [place]. Panel Fast 6 Months E78.00 - Pure hypercholesterolemia, unspecified Lipid Panel 6 Months E78.00 - Pure hypercholesterolemia, unspecified Vitamin D 25-OH Total 6 Months E55.9 - Vitamin D deficiency, unspecified Complete Blood Count Auto Diff 6 Months I10 - Essential (primary) hypertension Medications: Refilled azithromycin For 250 mg dose pack: take 500 mg today (day 1), then 250 mg for 4 days (days 2-5) PO 6 tabs 0RF J20.9 - Acute bronchitis, unspecified Coding Level of Care Code Est Pt Level 4 (52207) Diagnoses Benign essential hypertension I10 Pure hypercholesterolemia E78.00 Impaired fasting glucose R73.01 GERD without esophagitis K21.9 Osteopenia, unspecified location M85.80 Osteopenia location: unspecified Bronchitis J40 Overweight (BMI 25.0-29.9) E66.3
== END 2023-02-23 17:17 | disposition home or self-care (01) ==
PROVIDERS: PCP Internal Medicine; Visit Provider Internal Medicine
DX: I10 Essential (primary) hypertension (principal); E78.00 Pure hypercholesterolemia, unspecified; R73.01 Impaired fasting glucose; K21.9 Gastro-esophageal reflux disease without esophagitis; M85.80 Other specified disorders of bone density and structure, unspecified site; J40 Bronchitis, not specified as acute or chronic; E66.3 Overweight
CPT/HCPCS: 99214

== ENCOUNTER 2023-08-21 07:48 | Outpatient (REF) | payer MEDICARE, SELFPAY ==
[2023-08-21 07:55] LABS: MANUAL DIFF FLAG NO
[2023-08-21 08:38] LABS: Basophils Absolute Auto 0.1 X10*3/uL (0.0-0.2); Basophils Percent Auto 0.8 % (0-2); Eosinophils Absolute Auto 0.3 X10*3/uL (0.0-0.4); Eosinophils Percent Auto 3.8 % (0-4); Hematocrit 39.9 % (37.0-47.0); Hemoglobin 13.3 g/dl (12.0-16.0); Imm Gran Abs Auto 0.02 X10*3/uL (0.00-0.03); Imm Gran Pct Auto 0.3 % (0.0-0.4); Lymphocytes Percent Auto 25.9 % (20-40); Mean Corpuscular HGB Conc 33.3 g/dl (31.0-35.0); Mean Corpuscular Hemoglobin 31.5 pg (27.0-33.0); Mean Corpuscular Volume 94.5 fL (80.0-98.0); Mean Platelet Volume 9.9 fL (9.4-12.3); Monocytes Absolute Auto 0.6 X10*3/uL (0.1-1.2); Monocytes Percent Auto 7.8 % (2-11); Neutrophils Absolute Auto 4.7 x10*3/uL (2.0-8.3); Neutrophils Percent Auto 61.4 % (45-73); Platelet Count 355 X10*3/uL (160-400); Red Blood Count 4.22 X10*6/uL (4.20-5.50); Red Cell Distribution Width 11.8 % (11.0-16.0); White Blood Count 7.7 X10*3/uL (4.8-10.8)
[2023-08-21 09:47] LABS: Alanine Aminotransferase 17 U/L (0-31); Albumin Level 3.9 g/dL (3.5-5.0); Alkaline Phosphatase 104 U/L (39-117); Anion Gap 14 (12-20); Aspartate Amino Transferase 16 U/L (5-31); Bilirubin Total 0.4 mg/dL (0.0-1.0); Blood Urea Nitrogen 13 mg/dL (9-16); Carbon Dioxide 26 mmol/L (22-29); Chloride 108 mmol/L (96-108); Cholesterol 119 mg/dL (<200); Estimated Glomerular Filt Rate > 60; Glucose Fasting 102 mg/dL (60-99); HDL Cholesterol 46 mg/dL (>40); LDL Cholesterol Calculated 56 mg/dL (<100); Potassium 4.4 mmol/L (3.3-5.1); Sodium 144 mmol/L (135-145); Total Protein 7.3 g/dL (6.5-8.0); Triglycerides 88 mg/dL (<150)
[2023-08-21 09:53] LABS: Vitamin D 25-OH Total 46.1 ng/mL (>30)
== END 2023-08-21 07:49 | disposition home or self-care (01) ==
LOC: HO.LAB 07:48
PROVIDERS: PCP Internal Medicine; Visit Provider Internal Medicine
DX: E78.00 Pure hypercholesterolemia, unspecified (principal); E55.9 Vitamin D deficiency, unspecified; I10 Essential (primary) hypertension
CPT/HCPCS: 36415; 80053; 80061; 82306; 85025

== ENCOUNTER 2023-08-25 09:45 | Outpatient (AMB) | payer MEDICARE, SELFPAY ==
[2023-08-25 09:54] VITALS: BP 162/74; PULSE 87; O2SAT 96; BMI 27.6
--- NOTE | 2023-08-25 09:54 | A.OFFPC_ITS ---
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 Allergies No Known Allergies Allergy (Verified 08/25/23 10:29) Medication List - Last Reconciled 08/25/23 by Preston Ruiz MD acetaminophen (Tylenol Extra Strength) 500 mg PO Q6H PRN amlodipine 2.5 mg PO DAILY atorvastatin 10 mg PO BEDTIME 90 days Tobacco use date assessed: 08/25/23 Fall risk assessment: No Falls in past year Last assessed Fall Risk: 08/25/23 Dental Screening Dental Screen Date: 08/25/23 Did you have a dental visit in the last 12 months?: Yes Did you have a dental problem in the last 6 months where you did not have access to dental care?: No Was dental information given to patient?: Patient has dentist HPI 6 month f/u HPI Details Patient comes in today for her follow up visit States that she feels okay Is currently going to physical therapy for her right shoulder She went to urgent care at [facility] for right shoulder pain recently and x-rays done revealed (+) rotator cuff tendinitis and she was recommended to go to physical therapy for her shoulder States that she took her blood pressure reading at home earlier this morning and it was normal at 124/68, HR = 82 She denies any headaches or dizziness Denies any chest pains, no SOB No nausea/vomiting, no abdominal pain No change in bowel habits noted Had her follow up labs done a few days ago -to discuss her results [facility] Medical History Overweight (BMI 25.0-29.9) Osteopenia GERD without esophagitis Pure hypercholesterolemia Benign essential hypertension Surgical History History of colonoscopy History of appendectomy History of bunionectomy Family History Father Chronic mental illness Mother Diabetes Hypertension Cancer Social History Housing: House Alcohol intake: never Patient Tobacco Use Status: Former Tobacco user e-Cigarette/Vaping Use: Never Used Second Hand Smoke Exposure: Yes service: No Current occupational status: retired Cognitive needs: No Hearing needs: No Vision needs: Yes Questionnaire PHQ-9 Over the last 2 weeks, how often have you been bothered by any of the following problems? 1. Little interest or pleasure in doing things: not at all 2. Feeling down, depressed, or hopeless: not at all 3. Trouble falling or staying asleep, or sleeping too much: not at all 4. Feeling tired or having little energy: not at all 5. Poor appetite or overeating: not at all 6. Feeling bad about yourself - or that you are a failure or have let yourself or your family down: not at all 7. Trouble concentrating on things, such as reading the newspaper or watching television: not at all 8. Moving or speaking so slowly that other people could have noticed. Or the opposite - being so fidgety or restless that you have been moving around a lot more than usual: not at all 9. Thoughts that you would be better off or of hurting yourself in some way: not at all Total score: 0 Depression Screening Interpretation: Negative Depression Screening Done: Yes 44939 - PHQ-9 Billing: Yes Source: Developed by Drs. Perez Dallas, Meliza Jessica, Charli Mora and colleagues, with an educational franklin from [employer]. Thrive Questionnaire Date Thrive assessed: 08/25/23 I am a: Patient What is your living situation today?: I have a steady place to live Within the past 12 months, did the food you bought not last and you didn't have the money to get more?: Never true Within the past 12 months, did you worry whether your food would run out before you got money to buy more?: Never true Do you have trouble paying for medicines?: No Do you have trouble getting transportation to medical appointments?: No Do you have trouble paying your heating and electricity bill?: No Do you have trouble taking care of your child, family member or friend?: No Do you have trouble with day-to-day activities such as bathing, preparing meals, shopping, managing finances, etc.?: No Are you currently unemployed and looking for a job?: No Are you interested in more education?: No Please select the resources that you would like help with: None Currently or been in a relationship where the following occur: no concerns reported THRIVE Score: 0 AUDIT C Alcohol Use Questionnaire (AUDIT-C) 1. How often do you have a drink containing alcohol?: Never 3. How often do you have six or more drinks on one occasion?: Never Total Score: 0 Score Reviewed/Action Taken: Yes NISHA-7 AMB Questionnaire NISHA-7 Date NISHA - 7 assessed: 02/23/23 Source: Developed by Drs. Perez Dallas, Meliza Jessica, Charli Mora and colleagues, with an educational franklin from [employer]. Review of Systems Const Denies chills, Denies fatigue, Denies fever(s) and Denies headache(s) ENT Denies dysphagia, Denies dizziness, Denies otalgia (but left ear feels blocked up), Denies headache(s), Denies neck pain, Denies odynophagia, Reports tinnitus (left ear) and Denies sore throat Card Denies chest pain, Denies palpitations and Denies dyspnea Resp Denies chest congestion, Denies cough and Denies dyspnea GI Denies abdominal pain, Denies constipation, Denies dysphagia, Denies heartburn, Denies diarrhea, Denies nausea, Denies odynophagia and Denies vomiting Denies difficulty voiding, Denies nocturia, Denies dysuria and Denies urinary urgency Musc Denies back pain, Reports arthralgias (right shoulder - improving), Denies joint swelling and Denies neck pain Skin/Breast Denies rash Neuro Denies dizziness and Denies headache(s) Endo Denies fatigue and Denies palpitations Physical exam (Primary Care) Vital Signs: Last Vital Signs Pulse 87 08/25/23 09:54 BP 162/74 H 08/25/23 09:54 Pulse Ox 96 08/25/23 09:54 Oxygen Delivery Method Room Air 08/25/23 09:54 BMI result Body Mass Index 27.6 Tobacco/Smoking Status: Tobacco use Status Tobacco use date assessed 08/25/23 08/25/23 09:59 Patient Tobacco Use Status Former Tobacco user 08/25/23 09:54 e-Cigarette/Vaping Use Never Used 08/25/23 09:54 Depression Screening Interpretation: Negative Thrive Assessment: Date of Thrive Assessment Date Thrive assessed 02/23/23 08/25/23 09:54 Currently or been in a relationship where the following occur: no concerns reported Const General: no acute distress and alert HENMT Ears: TM normal on the right, EAC's normal (right), Abnormal EAC present cerumen impaction on the left and unable to visualize TM (impacted cerumen) on the left Throat: Yes posterior oropharynx normal and Yes tonsils normal (no TP congestion noted) Neck Neck: Yes no lymphadenopathy and Yes supple Thyroid: Thyroid normal Resp Auscultation: clear to auscultation bilaterally, no rales and no wheezes Cardio Rate: regular rate Rhythm: regular rhythm Heart sounds: no murmurs GI Palpation (GI): Soft to palpation and nontender Auscultation: normal bowel sounds General: Yes no CVA tenderness Back/Spine/Pelvis Back: no CVA tenderness Skin Rashes: no rashes Extrem General: Yes no clubbing, cyanosis or edema Right upper extremity: full ROM and shoulder/upper arm Details: tenderness (minimal) Results Reviewed Results Reviewed: Laboratory Tests 08/21/23 07:54 WBC 7.7 Hgb 13.3 Hct 39.9 Plt Count 355 Sodium 144 Potassium 4.4 Creatinine 0.84 Estimated GFR > 60 Fasting Glucose 102 H Calcium 9.0 AST 16 ALT 17 Triglycerides 88 Cholesterol 119 LDL Cholesterol, Calc 56 HDL Cholesterol 46 25-OH Vitamin D Total 46.1 Assessment and Plan Assessment & Plan (1) Pure hypercholesterolemia: Code(s): E78.00 - Pure hypercholesterolemia, unspecified Plan: Results of her labs done a few days ago reviewed and discussed with patient Reinforced low cholesterol diet Continue Atorvastatin 10 mg QD Will recheck her labs and fasting lipids in 6 months for follow-up (2) Benign essential hypertension: Code(s): I10 - Essential (primary) hypertension Plan: Reinforced low sodium diet - goal is systolic BP of at least 130 to 140 mm or less Continue Amlodipine 2.5 mg QD (3) Impaired fasting glucose: Code(s): R73.01 - Impaired fasting glucose Plan: FBS was still slightly elevated at 102 mg/dl on her recent labs but her HgbA1c was normal at 5.4% when previously checked Reinforced low calorie diet/exercise as tolerated (4) GERD without esophagitis: Code(s): K21.9 - Gastro-esophageal reflux disease without esophagitis Plan: Dietary restrictions reinforced (5) Osteopenia: Code(s): M85.80 - Other specified disorders of bone density and structure, unspecified site Qualifiers: Osteopenia location: unspecified Qualified Code(s): M85.80 - Other specified disorders of bone density and structure, unspecified site Plan: Repeat BMD done in August 2022 revealed (+) osteopenia based on the lowest T-score value of -2.3 in the femoral neck (T-score was at -1.3 in October 2017) Advised patient that the BMD in her AP spine is mostly unchanged from previous but her left femur BMD has declined significantly by 12.9% from 2018 She is again encouraged to continue to stay active and exercise regularly and continue on her Calcium and Vitamin D supplements daily Advised that due to her BMD decline, she should consider starting on medications for osteopenia Have provided patient with handout on information about Alendronate as initial Tx option (6) Impacted cerumen of left ear: Code(s): H61.22 - Impacted cerumen, left ear Plan: Have advised patient again to start using her Debrox ear drops daily for at least a week and to start doing self-irrigation of her ear again as previously instructed while taking her daily shower Have advised her to call if this is unsuccessful and we can set her up for ear irrigation in the office although patient prefers to avoid this as much as possible (7) Overweight (BMI 25.0-29.9): Code(s): E66.3 - Overweight Plan: Reinforced diet/exercise as tolerated/lose weight Plan Follow up in 6 months Orders: Orders Complete Blood Count Auto Diff 6 Months D64.9 - Anemia, unspecified Lipid Panel 6 Months E78.00 - Pure hypercholesterolemia, unspecified TSH reflex Free T4 6 Months E78.00 - Pure hypercholesterolemia, unspecified Vitamin D 25-OH Total 6 Months E55.9 - Vitamin D deficiency, unspecified Hemoglobin A1c 6 Months R73.01 - Impaired fasting glucose Comprehensive [place]. Panel Fast 6 Months E78.00 - Pure hypercholesterolemia, unspecified UA CC w/rflx Micro + Cult 6 Months R30.0 - Dysuria Coding Level of Care Code Est Pt Level 4 (02214) Diagnoses Pure hypercholesterolemia E78.00 Benign essential hypertension I10 Impaired fasting glucose R73.01 GERD without esophagitis K21.9 Osteopenia, unspecified location M85.80 Osteopenia location: unspecified Impacted cerumen of left ear H61.22 Overweight (BMI 25.0-29.9) E66.3
[2023-08-25 10:44] VITALS: BP 124/68
== END 2023-08-25 10:55 | disposition home or self-care (01) ==
PROVIDERS: PCP Internal Medicine; Visit Provider Internal Medicine
DX: E78.00 Pure hypercholesterolemia, unspecified (principal); I10 Essential (primary) hypertension; R73.01 Impaired fasting glucose; K21.9 Gastro-esophageal reflux disease without esophagitis; M85.80 Other specified disorders of bone density and structure, unspecified site; H61.22 Impacted cerumen, left ear; E66.3 Overweight
CPT/HCPCS: 99214

== ENCOUNTER 2023-09-02 11:16 | Outpatient (REF) | payer SELFPAY | END 2023-09-02 11:17 | disposition home or self-care (01) | LOC: HO.HAP 11:16 | PROVIDERS: PCP Internal Medicine; Visit Provider Internal Medicine | DX: Z13.89 Encounter for screening for other disorder (principal) ==

== ENCOUNTER 2024-02-23 07:14 | Outpatient (REF) | payer MEDICARE, SELFPAY ==
[2024-02-23 07:32] LABS: MANUAL DIFF FLAG NO
[2024-02-23 07:43] LABS: Basophils Absolute Auto 0.1 X10*3/uL (0.0-0.2); Basophils Percent Auto 0.8 % (0-2); Eosinophils Absolute Auto 0.2 X10*3/uL (0.0-0.4); Eosinophils Percent Auto 3.3 % (0-4); Hematocrit 40.3 % (37.0-47.0); Hemoglobin 13.4 g/dl (12.0-16.0); Imm Gran Abs Auto 0.02 X10*3/uL (0.00-0.03); Imm Gran Pct Auto 0.3 % (0.0-0.4); Lymphocytes Absolute Auto 1.8 X10*3/uL (1.2-4.9); Lymphocytes Percent Auto 24.7 % (20-40); Mean Corpuscular HGB Conc 33.3 g/dl (31.0-35.0); Mean Corpuscular Hemoglobin 31.3 pg (27.0-33.0); Mean Corpuscular Volume 94.2 fL (80.0-98.0); Mean Platelet Volume 9.5 fL (9.4-12.3); Monocytes Absolute Auto 0.5 X10*3/uL (0.1-1.2); Monocytes Percent Auto 7.4 % (2-11); Neutrophils Absolute Auto 4.6 x10*3/uL (2.0-8.3); Neutrophils Percent Auto 63.5 % (45-73); Platelet Count 350 X10*3/uL (160-400); Red Blood Count 4.28 X10*6/uL (4.20-5.50); Red Cell Distribution Width 11.9 % (11.0-16.0); White Blood Count 7.3 X10*3/uL (4.8-10.8)
[2024-02-23 07:55] LABS: Estimated Average Glucose 108 mg/dL; Hemoglobin A1C 124.8014 umol/L; Hemoglobin A1c % 5.4 % (<6.0); Total Hemoglobin (HGBA1C) 3501.6662 umol/L
[2024-02-23 08:16] LABS: Alanine Aminotransferase 23 U/L (0-31); Alkaline Phosphatase 109 U/L (39-117); Anion Gap 10 (12-20); Aspartate Amino Transferase 24 U/L (5-31); Bilirubin Total 0.4 mg/dL (0.0-1.0); Blood Urea Nitrogen 12 mg/dL (9-16); Calcium 9.1 mg/dL (8.4-10.2); Carbon Dioxide 28 mmol/L (22-29); Chloride 108 mmol/L (96-108); Cholesterol 151 mg/dL (<200); Estimated Glomerular Filt Rate 58; Glucose Fasting 109 mg/dL (60-99); HDL Cholesterol 46 mg/dL (>40); LDL Cholesterol Calculated 74 mg/dL (<100); Potassium 4.3 mmol/L (3.3-5.1); Sodium 142 mmol/L (135-145); Total Protein 7.3 g/dL (6.5-8.0); Triglycerides 159 mg/dL (<150)
[2024-02-23 08:33] LABS: TSH reflex Free T4 2.92 uIU/mL (0.32-4.0)
[2024-02-23 10:40] LABS: Appearance Urine Clear; Color Urine Yellow; Glucose Urine UA Negative (Negative); Leukocyte Esterase Urine Trace (Negative); Nitrite Urine Negative (Negative); Specific Gravity - Urine 1.015 (1.005-1.025); UMIC TRIGGER UACC YES; Urine Blood Negative (Negative); Urine Ketones Negative (Negative); Urine Protein Negative (Neg-Trace)
[2024-02-23 10:44] LABS: Bacteria Urine None Seen (None Seen); RBC Urine 0-2 /HPF (0-2); Squamous Epithelial Cell Urine 0-2 /HPF (0-2); WBC Urine 0-5 /HPF (0-5)
== END 2024-02-23 07:15 | disposition home or self-care (01) ==
LOC: HO.LAB 07:14
PROVIDERS: PCP Internal Medicine; Visit Provider Internal Medicine
DX: E78.00 Pure hypercholesterolemia, unspecified (principal); E55.9 Vitamin D deficiency, unspecified; R73.01 Impaired fasting glucose; D64.9 Anemia, unspecified
CPT/HCPCS: 36415; 80053; 80061; 81001; 82306; 83036; 84443; 85025

== ENCOUNTER 2024-02-25 09:35 | Outpatient (AMB) | payer SELFPAY ==
[2024-02-25 09:43] VITALS: BP 146/90; PULSE 96; O2SAT 98; BMI 27.7
--- NOTE | 2024-02-25 09:43 | A.OFFPC_ITS ---
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 Accompanied by: Self / Same As Patient Allergies No Known Allergies Allergy (Verified 02/25/24 10:16) Medication List - Last Reconciled 02/25/24 by Preston Ruiz MD acetaminophen (Tylenol Extra Strength) 500 mg PO Q6H PRN amlodipine 2.5 mg PO DAILY atorvastatin 10 mg PO BEDTIME 90 days Tobacco use date assessed: 02/25/24 Fall risk assessment: No Falls in past year Last assessed Fall Risk: 02/25/24 Dental Screening Dental Screen Date: 02/25/24 Did you have a dental visit in the last 12 months?: Yes Did you have a dental problem in the last 6 months where you did not have access to dental care?: No Was dental information given to patient?: Patient has dentist HPI HTN, hyperlipidemia, osteopenia, IFG HPI Details Patient comes in today for her follow up visit States that she is still experiencing recurrent issues with her right shoulder and this limited significantly her ability to play golf over the summer so she has not been as active as she would have been over the past few months States that she has also been helping take care of her younger sister, who is suffering from dementia, and admits to poor compliance with her diet as she has been busy with so many other things to do States that she feels okay otherwise She denies any headaches or dizziness Denies any chest pains, no SOB No nausea/vomiting, no abdominal pain No change in bowel habits noted She had her follow up labs done a couple of days ago - to discuss her results [facility] Medical History (Updated 02/25/24 @ 11:45 by Preston Ruiz MD) Impingement syndrome of right shoulder Overweight (BMI 25.0-29.9) Osteopenia GERD without esophagitis Pure hypercholesterolemia Benign essential hypertension Surgical History History of colonoscopy History of appendectomy History of bunionectomy Family History Father Chronic mental illness Mother Diabetes Hypertension Cancer Social History Housing: House Alcohol intake: never Patient Tobacco Use Status: Former Tobacco user e-Cigarette/Vaping Use: Never Used Second Hand Smoke Exposure: Yes service: No Current occupational status: retired Cognitive needs: No Hearing needs: No Vision needs: Yes Questionnaire PHQ-9 Over the last 2 weeks, how often have you been bothered by any of the following problems? 1. Little interest or pleasure in doing things: not at all 2. Feeling down, depressed, or hopeless: not at all 3. Trouble falling or staying asleep, or sleeping too much: not at all 4. Feeling tired or having little energy: not at all 5. Poor appetite or overeating: not at all 6. Feeling bad about yourself - or that you are a failure or have let yourself or your family down: not at all 7. Trouble concentrating on things, such as reading the newspaper or watching television: not at all 8. Moving or speaking so slowly that other people could have noticed. Or the opposite - being so fidgety or restless that you have been moving around a lot more than usual: not at all 9. Thoughts that you would be better off or of hurting yourself in some way: not at all Total score: 0 Depression Screening Interpretation: Negative Depression Screening Done: Yes 97029 - PHQ-9 Billing: Yes Source: Developed by Drs. Perez Dallas, Meliza Jessica, Charli Mora and colleagues, with an educational franklin from [employer]. Thrive Questionnaire Date Thrive assessed: 02/25/24 I am a: Patient What is your living situation today?: I have a steady place to live Within the past 12 months, did the food you bought not last and you didn't have the money to get more?: Never true Within the past 12 months, did you worry whether your food would run out before you got money to buy more?: Never true Do you have trouble paying for medicines?: No Do you have trouble getting transportation to medical appointments?: No Do you have trouble paying your heating and electricity bill?: No Do you have trouble taking care of your child, family member or friend?: No Do you have trouble with day-to-day activities such as bathing, preparing meals, shopping, managing finances, etc.?: No Are you currently unemployed and looking for a job?: No Are you interested in more education?: No Please select the resources that you would like help with: None Currently or been in a relationship where the following occur: No concerns reported THRIVE Score: 0 AUDIT C Alcohol Use Questionnaire (AUDIT-C) 1. How often do you have a drink containing alcohol?: Never 3. How often do you have six or more drinks on one occasion?: Never Total Score: 0 Score Reviewed/Action Taken: Yes NISHA-7 AMB Questionnaire NISHA-7 Date NISHA - 7 assessed: 02/25/24 Feeling nervous, anxious, or on edge: 0 = Not at all Not being able to stop or control worryin = Not at all Worrying too much about different things: 0 = Not at all Trouble relaxin = Not at all Being so restless that it is hard to sit still: 0 = Not at all Becoming easily annoyed or irritable: 0 = Not at all Feeling afraid as if something awful might happen: 0 = Not at all Total NISHA-7 score (0-4 normal; 5-9 mild; 10-14 moderate; 15-21 severe): 0 Source: Developed by Drs. Perez Dallas, Meliza Jessica, Charli Mora and colleagues, with an educational franklin from [employer]. Review of Systems Const Denies chills, Denies fatigue, Denies fever(s) and Denies headache(s) ENT Denies dysphagia, Denies dizziness, Denies otalgia, Denies headache(s), Denies neck pain, Denies odynophagia, Reports tinnitus (left ear) and Denies sore throat Card Denies chest pain, Denies palpitations and Denies dyspnea Resp Denies chest congestion, Denies cough and Denies dyspnea GI Denies abdominal pain, Denies constipation, Denies dysphagia, Denies heartburn, Denies diarrhea, Denies nausea, Denies odynophagia and Denies vomiting Denies difficulty voiding, Denies nocturia, Denies dysuria and Denies urinary urgency Musc Denies back pain, Reports arthralgias (right shoulder - improving), Denies joint swelling and Denies neck pain Skin/Breast Denies rash Neuro Denies dizziness and Denies headache(s) Endo Denies fatigue and Denies palpitations Physical exam (Primary Care) Vital Signs: Last Vital Signs Pulse 96 02/25/24 09:43 BP 146/90 H 02/25/24 09:43 Pulse Ox 98 02/25/24 09:43 Oxygen Delivery Method Room Air 02/25/24 09:43 BMI result Body Mass Index 27.7 Tobacco/Smoking Status: Tobacco use Status Tobacco use date assessed 02/25/24 02/25/24 09:47 Patient Tobacco Use Status Former Tobacco user 02/25/24 09:47 e-Cigarette/Vaping Use Never Used 02/25/24 09:47 PHQ-9: PHQ-9 Score PHQ-9: Total score 0 02/25/24 09:47 Depression Screening Interpretation: Negative Thrive Assessment: Date of Thrive Assessment Date Thrive assessed 02/25/24 02/25/24 09:47 Currently or been in a relationship where the following occur: No concerns reported Const General: no acute distress and alert HENMT Ears: TM's normal bilaterally and EAC's normal Throat: Yes posterior oropharynx normal and Yes tonsils normal (no TP congestion noted) Neck Neck: Yes no lymphadenopathy and Yes supple Thyroid: Thyroid normal Resp Auscultation: clear to auscultation bilaterally, no rales and no wheezes Cardio Rate: regular rate Rhythm: regular rhythm Heart sounds: no murmurs GI Palpation (GI): Soft to palpation and nontender Auscultation: normal bowel sounds General: Yes no CVA tenderness Back/Spine/Pelvis Back: no CVA tenderness Skin Rashes: no rashes Extrem General: Yes no clubbing, cyanosis or edema Right upper extremity: full ROM and shoulder/upper arm Details: tenderness (minimal) Results Reviewed Results Reviewed: Laboratory Tests 02/23/24 02/23/24 07:30 08:12 WBC 7.3 Hgb 13.4 Hct 40.3 Plt Count 350 Sodium 142 Potassium 4.3 Creatinine 0.93 Estimated GFR 58 Fasting Glucose 109 H Hemoglobin A1c % 5.4 Calcium 9.1 AST 24 ALT 23 Triglycerides 159 H Cholesterol 151 LDL Cholesterol, Calc 74 HDL Cholesterol 46 25-OH Vitamin D Total 50.0 TSH 2.92 Ur Specific [place] 1.015 Urine Protein Negative Urine Glucose (UA) Negative Urine Blood Negative Urine Nitrite Negative Ur Leukocyte Esterase Trace H Coding Level of Care Code Est Pt Level 4 (68098) Diagnoses Pure hypercholesterolemia E78.00 Benign essential hypertension I10 Impaired fasting glucose R73.01 GERD without esophagitis K21.9 Impingement syndrome of right shoulder M75.41 Osteopenia, unspecified location M85.80 Osteopenia location: unspecified Overweight (BMI 25.0-29.9) E66.3 Additional Codes PHQ-9 - 55734 - PHQ-9 Billing: Yes ([id number]) Assessment & Plan Assessment & Plan (1) Pure hypercholesterolemia: Code(s): E78.00 - Pure hypercholesterolemia, unspecified Category: Medical Plan: Results of her labs done a couple of days ago reviewed and discussed with patient - she is advised that her triglyceride level has increased from previous, likely in relation to her recent porr dietary compliance Reinforced low cholesterol diet Continue Atorvastatin 10 mg QD for now Will recheck her labs and fasting lipids in 6 months for follow-up (2) Benign essential hypertension: Code(s): I10 - Essential (primary) hypertension Category: Medical Plan: Reinforced low sodium diet - goal is systolic BP of at least 130 to 140 mm or less Continue Amlodipine 2.5 mg QD (Rx refilled) (3) Impaired fasting glucose: Code(s): R73.01 - Impaired fasting glucose Category: Medical Plan: FBS was still slightly elevated at 109 mg/dl on her recent labs but her HgbA1c remained normal at 5.4% Reinforced low calorie diet/exercise as tolerated (4) GERD without esophagitis: Code(s): K21.9 - Gastro-esophageal reflux disease without esophagitis Category: Medical Plan: Dietary restrictions reinforced (5) Impingement syndrome of right shoulder: Comment: with AC joint arthropathy Code(s): M75.41 - Impingement syndrome of right shoulder Category: Medical Plan: States that she has been to physical therapy but it did not help much She was seen at [facility] a few months ago but declined getting a cortisone injection Shoulder x-rays done previously at [facility] reportedly revealed (+) early glenohumeral joint arthritis with inferior humeral head osteophyte and cystic changes involving the greater tuberosity She was recommended to continue with activity modifications and regular shoulder exercises to manage her shoulder symptoms and to reach out to [facility] again if her symptoms progress - will then consider ultrasound-guided glenohumeral joint injection Tx Follow up with [facility] as scheduled (6) Osteopenia: Code(s): M85.80 - Other specified disorders of bone density and structure, unspecified site Category: Medical Qualifiers: Osteopenia location: unspecified Qualified Code(s): M85.80 - Other specified disorders of bone density and structure, unspecified site Plan: Repeat BMD done in August 2022 revealed (+) osteopenia based on the lowest T-score value of -2.3 in the femoral neck (T-score was at -1.3 in October 2017) Have advised patient that her AP spine BMD is mostly unchanged from previous but her left femur BMD has declined significantly by 12.9% from 2018 She is again encouraged to continue to stay active and exercise regularly and continue on her Calcium and Vitamin D supplements daily Advised that due to her BMD decline, she should consider starting on medications for osteopenia Have provided patient with handout on information about Alendronate as initial Tx option - she is still undecided on whether she wants to start Tx or not at this time (7) Overweight (BMI 25.0-29.9): Code(s): E66.3 - Overweight Category: Medical Plan: Reinforced diet/exercise as tolerated/lose weight Plan Follow up in 6 months Orders: Orders Hemoglobin A1c 6 Months R73.01 - Impaired fasting glucose Complete Blood Count Auto Diff 6 Months D64.9 - Anemia, unspecified Vitamin D 25-OH Total 6 Months E55.9 - Vitamin D deficiency, unspecified Comprehensive [place]. Panel Fast 6 Months E78.00 - Pure hypercholesterolemia, unspecified Lipid Panel 6 Months E78.00 - Pure hypercholesterolemia, unspecified TSH reflex Free T4 6 Months E78.00 - Pure hypercholesterolemia, unspecified Medications: Refilled amlodipine 2.5 mg PO DAILY 90 tabs 1RF I10 - Essential (primary) hypertension
== END 2024-02-25 10:38 | disposition home or self-care (01) ==
PROVIDERS: PCP Internal Medicine; Visit Provider Internal Medicine
DX: E78.00 Pure hypercholesterolemia, unspecified (principal); I10 Essential (primary) hypertension; R73.01 Impaired fasting glucose; K21.9 Gastro-esophageal reflux disease without esophagitis; M75.41 Impingement syndrome of right shoulder; M85.80 Other specified disorders of bone density and structure, unspecified site; E66.3 Overweight

== ENCOUNTER → 2024-02-25 09:35 | Outpatient (BNVA) | payer MEDICARE, SELFPAY | PROVIDERS: PCP Internal Medicine; Visit Provider Internal Medicine | DX: E78.00 Pure hypercholesterolemia, unspecified (principal); I10 Essential (primary) hypertension; R73.01 Impaired fasting glucose; K21.9 Gastro-esophageal reflux disease without esophagitis; M75.41 Impingement syndrome of right shoulder; M85.80 Other specified disorders of bone density and structure, unspecified site; E66.3 Overweight; Z68.27 Body mass index [BMI] 27.0-27.9, adult; Z71.3 Dietary counseling and surveillance | CPT/HCPCS: 96127; 99212 ==

== ENCOUNTER 2024-08-01 15:29 | Emergency (ER) | payer MEDICARE, SELFPAY ==
--- NOTE | ~2024-08-01 | XR_ITS ---
EXAMINATION: XR KNEE, RIGHT CLINICAL INFORMATION: trauma COMPARISON: None available. TECHNIQUE: Four views of the right knee. FINDINGS: No fracture, dislocation, or suspicious bone lesion. Normal bone mineralization. Normal alignment. Mild medial compartment joint space narrowing. Mild patellofemoral joint space narrowing. Superior patellar enthesopathy present. No significant joint effusion. Soft tissues appear normal. XR/XR knee RT 4V IMPRESSION: 1. No acute bony abnormality. No significant joint effusion. 2. Mild degenerative arthropathy in the medial and patellofemoral margins. Electronically signed by: Demar Dickey MD 08/01/2024 04:34 PM EDT
--- NOTE | ~2024-08-01 | CT_ITS ---
EXAMINATION: CT HEAD WITHOUT CONTRAST CLINICAL INFORMATION: Trauma. COMPARISON: None available. TECHNIQUE: Contiguous axial imaging was performed from the skull base to vertex without intravenous administration of contrast. This CT examination was performed using dose optimization techniques as appropriate, variously including the following: *Automated exposure control *Adjustment of mA and/or kV according to patient size (this includes techniques or standardized protocols for targeted exams where dose is matched to indication/reason for exam; i.e. extremities or head) *Use of iterative reconstruction technique DLP: 993 mGy/cm. FINDINGS: Brain: There is no acute intra-axial, extra-axial bleed, masses or midline shift. There is no acute infarction evolution. There is no edema. The faulkner to white matter differentiation is maintained normal. Lateral ventricles are symmetrical in size and configuration without enlargement. There is benign hyperostosis frontalis interna. The calvarium otherwise is unremarkable. The paranasal sinuses are well-aerated and clear. CT/CT head/brain wo IV con IMPRESSION: No acute intracranial process seen. Electronically signed by: Iain King MD 08/01/2024 05:02 PM EDT
--- NOTE | ~2024-08-01 | CT_ITS ---
EXAMINATION: CT CERVICAL SPINE WITHOUT CONTRAST CLINICAL INFORMATION: Trauma COMPARISON: None available. TECHNIQUE: 3 mm thin axial and reformatted 2 minute thin sagittal and coronal images of cervical spine were obtained. This CT examination was performed using dose optimization techniques as appropriate, variously including the following: *Automated exposure control *Adjustment of mA and/or kV according to patient size (this includes techniques or standardized protocols for targeted exams where dose is matched to indication/reason for exam; i.e. extremities or head) *Use of iterative reconstruction technique DLP: 993 FINDINGS: There is maintained cervical lordosis. Mild loss of C4-5, C6 S1 and C7-T1 disc heights with ventral spondylosis noted. The craniovertebral junction and C1-C2 alignment is normal. There is no visible acute fracture, dislocation of subluxation seen. There is moderate left C2-3, C3-4, C4-5 facet joint arthropathy and hypertrophy. The prevertebral and paravertebral soft tissues are normal. The airway is widely patent. The soft tissues are normal. CT/CT cervical spine wo IV con IMPRESSION: Mild DJD. No visible acute fracture or dislocation seen. Fleischner guidelines were followed. Electronically signed by: Iain King MD 08/01/2024 05:09 PM EDT
[2024-08-01 15:37] VITALS: BP 158/80; PULSE 103; RESP 20; TEMP 36.7; O2SAT 98; BMI 27.3
--- NOTE | 2024-08-01 15:39 | ED_ITS ---
HPI - General Adult General Chief complaint: Fall Stated complaint: fall lac on Left thumb / lac on forehead Time Seen by Provider: 08/01/24 19:08 Source: patient Limitations: no limitations History of Present Illness ED Provider: Anusha Liu PA-C HPI narrative: 79-year-old female presents after fall. 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 There was no loss consciousness, the patient does not complain of neck pain, she is not on a blood thinner. Patient has sustained a skin tear to the forehead, and laceration to the left thumb. She also complains of right knee pain. Tetanus UTD. Related Data Home Medications ?Medication ?Instructions ?Recorded ?Confirmed acetaminophen 500 mg tablet 500 mg PO Q6H PRN 04/16/20 02/25/24 (Tylenol Extra Strength) Previous Rx's ?Medication ?Instructions ?Recorded amlodipine 2.5 mg tablet 2.5 mg PO DAILY #90 tabs 02/25/24 atorvastatin 10 mg tablet 10 mg PO BEDTIME 90 days #90 tabs 06/25/24 Allergies Allergy/AdvReac Type Severity Reaction Status Date / Time No Known Allergies Allergy Verified 08/01/24 15:43 Review of Systems Review of Systems: Yes all other systems are reviewed and are negative Constitutional: Constitutional: Denies fatigue, Denies fever(s) and Denies headache(s) ENT: Denies dizziness, Denies headache(s) and Denies neck pain Cardiovascular: Cardiovascular: Denies chest pain and Denies dyspnea Respiratory: Respiratory: Denies dyspnea Gastrointestinal: Gastrointestinal: Denies nausea and Denies vomiting Musculoskeletal: Musculoskeletal: Denies back pain, Reports arthralgias and Denies neck pain Neurologic: Denies dizziness and Denies headache(s) Endocrine: Endocrine: Denies fatigue PMFSH Past Medical History Attestation statement: The following information was validated with the patient. Medical History (Updated 08/01/24 @ 20:05 by AYANNA Villatoro) Impingement syndrome of right shoulder Overweight (BMI 25.0-29.9) Osteopenia GERD without esophagitis Pure hypercholesterolemia Benign essential hypertension Surgical History History of colonoscopy History of appendectomy History of bunionectomy Family History Family History Father Chronic mental illness Mother Diabetes Hypertension Cancer Social History Social History Housing: House Alcohol intake: never Patient Tobacco Use Status: Former Tobacco user Smoked in Last 30 Days: No e-Cigarette/Vaping Use: Never Used Second Hand Smoke Exposure: Yes Use of substances other than those prescribed or required for medical reasons: No Advance Directives: No Advance Directives Information Provided: No Do you have a plan to hurt others: No Plan service: No Current occupational status: retired Cognitive needs: No Hearing needs: No Vision needs: Yes Physical Exam ED Vital Signs: Vital Signs - 24 hr 08/01/24 15:37 08/01/24 17:52 08/01/24 19:04 Temperature 98.0 F 97.3 F 97.6 F Pulse Rate 103 H 87 87 Respiratory Rate 20 16 16 Blood Pressure 158/80 H 156/65 H 187/70 H Pulse Oximetry 98 99 98 Oxygen Delivery Method Room Air Room Air Room Air BMI result Body Mass Index 27.3 Const Other: Alert well-appearing, abrasion noted over right forehead and over the bridge of nose not bleeding Orientation/consciousness: patient oriented x3 Resp Effort & Inspection: normal respiratory effort Cardio Other: Normal peripheral perfusion Skin Other: Warm dry no rash Neuro General: patient oriented x3, gait normal, no focal motor deficits and CN's II- XI intact bilaterally Extrem Other: Full flexion and extension of right knee, overlying ecchymosis with the abrasion noted subtle swelling. 1.5 irregular laceration with macerated tissue noted over lateral aspect of left thumb, is superficial and not bleeding Psych Other: Calm cooperative Course Course Course Narrative: RME, this is a rapid medical exam performed by [facility] please refer to primary provider for complete H&P- 79 old female presents for evaluation after a fall. She reports that she was on her back deck when she believes she stubbed her toe and fell to the ground. She did not lose consciousness. She struck her forehead/face on pavers. She has abrasion with small skin tear to the right forehead, small, laceration to the left thumb. Bleeding controlled in triage Medications Administered Discontinued Medications Generic Name Dose Route Start Last Admin Trade Name Justa PRN Reason Stop Dose Admin Bacitracin 1 appl 08/01/24 19:38 08/01/24 20:01 Bacitracin Oint 0.9 Gm Packet TOPICAL 08/01/24 19:39 1 appl ONCE ONE Administration Protocol Lidocaine/Epinephrine 10 ml 08/01/24 19:12 08/01/24 20:01 Lidocaine Hcl 1%/Epi 1:100,000 10 Ml Vial INFILTRATI 08/01/24 19:13 10 ml ONCE ONE Administration Procedures Laceration Laceration 1: Site: hand Side (If applicable): left Size (cm): 1.5 Description: irregular Depth: simple, single layer Local Anesthetic: lidocaine 1% and with epi Amount of anesthesia used (mL): 2 Skin layer closed with: nylon Size (cm): 4-0 Number of sutures: 3 Technique: simple, interrupted Medical Decision Making Medical Decision Making MDM Narrative: 79-year-old female presents after fall. 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 There was no loss consciousness, the patient does not complain of neck pain, she is not on a blood thinner. Patient has sustained a skin tear to the forehead, and laceration to the left thumb. She also complains of right knee pain. Tetanus UTD. No relevant chronic issues History: Per patient I have considered the following differential diagnoses: Intracranial hemorrhage, cervical spine injury, fracture, dislocation, laceration Plan: Imaging obtained from triage, laceration will require simple repair I have independently reviewed the following tests: CT brain: CT/CT head/brain wo IV con IMPRESSION: No acute intracranial process seen. CT cervical spine: CT/CT cervical spine wo IV con IMPRESSION: Mild DJD. No visible acute fracture or dislocation seen. Fleischner guidelines were followed. X-ray right knee: XR/XR knee RT 4V IMPRESSION: 1. No acute bony abnormality. No significant joint effusion. 2. Mild degenerative arthropathy in the medial and patellofemoral margins. Discharge Plan Discharge Clinical Impression: Abrasion of forehead, Contusion of forehead, Contusion of knee, right, Laceration of left thumb Patient Disposition: Home, Self-Care Instructions: Abrasion (ED), Contusion in Adults (ED), Laceration (ED) Additional Instructions: The CT scan of your brain and cervical spine were negative for acute injury. The x-ray of the right knee was negative for acute injury. You have sustained contusions and abrasions. See home care instructions. Three sutures were used to repair the laceration of the left thumb. See home care instructions. The stitches can be removed in 7 days. You can return to the emergency department for suture removal, or you can follow up with your primary care provider. Prescriptions: No Action atorvastatin 10 mg tablet 10 mg PO BEDTIME 90 Days Qty: 90 1RF acetaminophen [Tylenol Extra Strength] 500 mg tablet 500 mg PO Q6H PRN amlodipine 2.5 mg tablet 2.5 mg PO DAILY Qty: 90 1RF Print Language: Nepali
[2024-08-01 17:52] VITALS: BP 156/65; PULSE 87; RESP 16; TEMP 36.3; O2SAT 99
[2024-08-01 19:04] VITALS: BP 187/70; PULSE 87; RESP 16; TEMP 36.4; O2SAT 98
--- OUTSIDE RECORDS SUMMARY | 2024-08-01 19:18 | XMS_ITS | Clinical Summary ---
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 Name Role Phone Unavailable Primary Care Provider Unavailabl e Social History Tobacco Use Types Packs/Day Years Used Date Smoking Tobacco: Never Assessed Comments Unknown Sex and Gender Information Value Date Recorded Sex Assigned at Not on file Legal Sex Female 2:37 AM EST Gender Identity Not on file Sexual Orientation Not on file Plan of Treatment Health Maintenance Due Date Last Done Comments DTaP,Tdap,and Td Vaccines (1 - Tdap) 1964 Pneumococcal Vaccine: 50+ Ye ars (1 of 1 - PCV) 1994 Zoster Vaccines (1 of 2) 1994 RSV Immunization Adult Patie nts (1 - 1-dose 75+ series) 2019 Depression Screening 03/09/2022 Falls Risk Assessment 03/09/2022 Osteoporosis Screening (Bone Density Screening) 03/09/2022 Social Influencers of Health Screening 03/09/2022 COVID-19 Vaccine (2023-2 5 season) 2023 Influenza Vaccine (Season Ended) 2024 HIB Vaccines Aged Out No longer eligi ble based on patient's age to complete this topic HPV Vaccines Aged Out No longer eligi ble based on patient's age to complete this topic Hepatitis A Vaccines Aged Out No long er eligible based on patient's age to complete this topic Hepatitis B Vaccines Aged Out No long er eligible based on patient's age to complete this topic IPV Vaccines Aged Out No longer eligi ble based on patient's age to complete this topic MMR Vaccines Aged Out No longer eligi ble based on patient's age to complete this topic Meningococcal ACWY Vaccine Aged Out N o longer eligible based on patient's age to complete this topic Meningococcal B Vaccine Aged Out No l onger eligible based on patient's age to complete this topic RSV Immunization Patients Un raj 20 months Aged Out No longer eligible b ased on patient's age to complete this topic Varicella Vaccines Aged Out No longer eligible based on patient's age to complete this topic
[2024-08-01] MEDS: Bacitracin Oint 0.9 GM PACKET 1 APPL TOPICAL (20:01)
[2024-08-01] MEDS: Lidocaine HCl 1%/Epi 1:100,000 10 ML VIAL INFILTRATI (20:01)
[2024-08-01 20:10] VITALS: BP 187/70; PULSE 87; RESP 16; TEMP 36.4; O2SAT 98
== END 2024-08-01 20:19 | disposition home or self-care (01) ==
PROVIDERS: Emergency Provider Emergency Medicine; PCP Internal Medicine
DX: S00.81XA Abrasion of other part of head, initial encounter (principal); S00.83XA Contusion of other part of head, initial encounter; S61.012A Laceration without foreign body of left thumb without damage to nail, initial encounter; M54.2 Cervicalgia; M25.561 Pain in right knee; R51.9 Headache, unspecified; W01.10XA Fall on same level from slipping, tripping and stumbling with subsequent striking against unspecified object, initial encounter; Y93.01 Activity, walking, marching and hiking; Y92.480 Sidewalk as the place of occurrence of the external cause; Y99.8 Other external cause status; Z79.899 Other long term (current) drug therapy
CPT/HCPCS: 70450; 72125; 73564; 99284; J2004

== ENCOUNTER → 2024-08-01 15:39 | Outpatient (BNV) | payer MEDICARE, SELFPAY | PROVIDERS: PCP Internal Medicine; Visit Provider Radiology Diagnostic Radiology | DX: M47.812 Spondylosis without myelopathy or radiculopathy, cervical region (principal); M53.82 Other specified dorsopathies, cervical region; S09.90XA Unspecified injury of head, initial encounter; M22.2X1 Patellofemoral disorders, right knee | CPT/HCPCS: 70450; 72125; 73564 ==

== ENCOUNTER 2024-08-08 09:55 | Emergency (ER) | payer MEDICARE, SELFPAY ==
--- NOTE | 2024-08-08 10:08 | ED.SKABFB ---
HPI - Skin/Abscess/Foreign Bdy General Stated complaint: suture removal Time Seen by Provider: 08/08/24 10:08 Source: patient and RN notes reviewed Mode of arrival: ambulatory Limitations: no limitations History of Present Illness ED Provider: Kyra Zuniga PA-C HPI narrative: This is a 79-year-old female who presents emergency department for suture removal to left thumb. Patient was seen here on August 01 where she sustained a laceration to her left thumb and 3 sutures were placed. She states that she tolerated the sutures well without any complications or concerns. No fevers or chills. No increased drainage or redness. He is left-hand dominant. No other complaints or concerns at this time. MD complaint: laceration Onset (ago): hour(s) Relieving factors: none Exacerbating factors: none Context: none Associated symptoms: denies other symptoms Treatments prior to arrival: none Related Data Home Medications ?Medication ?Instructions ?Recorded ?Confirmed acetaminophen 500 mg tablet 500 mg PO Q6H PRN 04/16/20 02/25/24 (Tylenol Extra Strength) Previous Rx's ?Medication ?Instructions ?Recorded amlodipine 2.5 mg tablet 2.5 mg PO DAILY #90 tabs 02/25/24 atorvastatin 10 mg tablet 10 mg PO BEDTIME 90 days #90 tabs 06/25/24 Allergies Allergy/AdvReac Type Severity Reaction Status Date / Time No Known Allergies Allergy Verified 08/08/24 10:22 Review of Systems Review of Systems: Constitutional: No Weight loss, No Fever, No Chills, No Night Sweats, No Fatigue, No Malaise ENT/Mouth: No Hearing loss, No Ear Pain, No Nasal Congestion, No Sinus Pain, No Hoarseness, No sore throat, No Rhinorrhea, No Swallowing Difficulty Eyes: No Eye Pain, No Swelling, No Redness, No Foreign Body, No Discharge, No Vision Changes Cardiovascular: No Chest Pain, No SOB, No Dyspnea on Exertion, No Orthopnea, No Edema, No Palpitations Respiratory: No Cough, No Sputum, No Wheezing, No Smoke Exposure, No Dyspnea Gastrointestinal: No Nausea, No Vomiting, No Diarrhea, No Constipation, No Abdominal pain, No Hematochezia, No Melena Genitourinary: No irregular bleeding, No Dysuria, No Urinary Frequency, No Hematuria, No Urinary Incontinence/retention, No Urgency, No Flank Pain, No Urinary Flow Changes, No Hesitancy Musculoskeletal: No joint pain, No Myalgias, No Joint Swelling Skin: No Skin Lesions, No rash Neuro: No Weakness, No Numbness, No Paresthesias, No Loss of Consciousness, No Dizziness, No Headache Psych: No Anxiety/Panic, No Depression, No SI/HI/AH/VH, No Social Issues, Heme/Lymph: No Bruising, No Bleeding,No Lymphadenopathy Endocrine: No Polyuria, No Polydipsia, No Temperature Intolerance Yes all other systems are reviewed and are negative Constitutional: Constitutional: Reports as per HPI [facility] Past Medical History Medical History (Updated 08/08/24 @ 10:19 by AYANNA Hay) Impingement syndrome of right shoulder Overweight (BMI 25.0-29.9) Osteopenia GERD without esophagitis Pure hypercholesterolemia Benign essential hypertension Surgical History History of colonoscopy History of appendectomy History of bunionectomy Family History Family History Father Chronic mental illness Mother Diabetes Hypertension Cancer Social History Social History Housing: House Alcohol intake: never Patient Tobacco Use Status: Former Tobacco user e-Cigarette/Vaping Use: Never Used Second Hand Smoke Exposure: Yes Advance Directives: No Advance Directives Information Provided: Yes service: No Current occupational status: retired Cognitive needs: No Hearing needs: No Vision needs: Yes Physical Exam Const: Other: General: Awake, alert, and oriented X3. No acute distress. HEENT: Normal inspection CVS: Normal heart rate and rhythm. Pulses normal. Respiratory: No respiratory distress Skin: Left thumb, lateral aspect, there is a well-healed laceration with [address] Crusting noted, no surrounding erythema or warmth. Wound is well approximated, no evidence of wound dehiscence, or drainage. Extremities: Full ROM of the left thumb without difficulty. Strong radial pulse. Capillary refill less than 2 seconds. Neuro: Oriented X 3. No motor deficit. No sensory deficit. Medical Decision Making Medical Decision Making MDM Narrative: This is a 79-year-old female who presents emergency department for suture removal. Wound is well healed, no evidence of wound dehiscence. No surrounding erythema or warmth to suggest cellulitis. Three sutures were successfully removed from the left thumb. Patient tolerated procedure well without any complications or concerns. Given strict return precautions as well as wound care instructions. Patient stable for discharge. Differential Diagnosis Differential Diagnoses: The differential diagnosis associated with the presentation includes Suture removal, cellulitis, wound dehiscence Discharge Plan Discharge Clinical Impression: Visit for suture removal Patient Disposition: Home, Self-Care Instructions: Stitches Removal (ED) Additional Instructions: You were seen in the emergency department for a suture removal. We successfully removed the 3 sutures that were placed in your left thumb. Please keep wound clean and dry. Do not submerge wound. You may gently rinse wound with warm soap and water. Do not pick at the wound. You may continue applying antibiotic ointment to the wound until it is fully healed. If any new or worsening symptoms occur including but not limited to increased redness, swelling, drainage, decreased sensation or range of motion of your thumb, please seek emergent care. Prescriptions: No Action atorvastatin 10 mg tablet 10 mg PO BEDTIME 90 Days Qty: 90 1RF acetaminophen [Tylenol Extra Strength] 500 mg tablet 500 mg PO Q6H PRN amlodipine 2.5 mg tablet 2.5 mg PO DAILY Qty: 90 1RF Print Language: Spanish
[2024-08-08 10:21] VITALS: BP 141/59; PULSE 91; RESP 16; TEMP 36.8; O2SAT 96; BMI 26.6
[2024-08-08 10:35] VITALS: BP 141/59; PULSE 91; RESP 16; TEMP 36.8; O2SAT 96
[2024-08-08] MEDS: Bacitracin Oint 0.9 GM PACKET 1 APPL TOPICAL (10:35)
--- OUTSIDE RECORDS SUMMARY | 2024-08-08 11:42 | XMS_ITS | Clinical Summary ---
Author Organization [facility] Address [address] [place] [address] Phone Care Team Providers Care Community Relations Rep Name Role Phone Unavailable Primary Care Provider [...]
== END 2024-08-08 10:36 | disposition home or self-care (01) ==
PROVIDERS: Emergency Provider Emergency Medicine; PCP Internal Medicine
DX: Z48.02 Encounter for removal of sutures (principal)
CPT/HCPCS: 99282

== ENCOUNTER 2024-08-19 08:01 | Outpatient (REF) | payer MEDICARE, SELFPAY ==
--- OUTSIDE RECORDS SUMMARY | 2024-08-19 08:04 | XMS_ITS | Clinical Summary ---
Author Organization [facility] Address [address] [place] [address] Phone Care Team Providers Care Accounting Manager Cpa Name Role Phone Unavailable Primary Care Provider [...]
[2024-08-19 08:25] LABS: MANUAL DIFF FLAG NO
[2024-08-19 08:54] LABS: Basophils Percent Auto 0.6 % (0-2); Eosinophils Absolute Auto 0.2 X10*3/uL (0.0-0.4); Hematocrit 39.2 % (37.0-47.0); Imm Gran Abs Auto 0.02 X10*3/uL (0.00-0.03); Imm Gran Pct Auto 0.3 % (0.0-0.4); Lymphocytes Absolute Auto 1.8 X10*3/uL (1.2-4.9); Lymphocytes Percent Auto 26.7 % (20-40); Mean Corpuscular HGB Conc 33.2 g/dl (31.0-35.0); Mean Corpuscular Hemoglobin 31.2 pg (27.0-33.0); Mean Platelet Volume 9.8 fL (9.4-12.3); Monocytes Absolute Auto 0.5 X10*3/uL (0.1-1.2); Monocytes Percent Auto 7.1 % (2-11); Neutrophils Absolute Auto 4.1 x10*3/uL (2.0-8.3); Neutrophils Percent Auto 62.3 % (45-73); Platelet Count 315 X10*3/uL (160-400); Red Blood Count 4.17 X10*6/uL (4.20-5.50); Red Cell Distribution Width 11.8 % (11.0-16.0); White Blood Count 6.6 X10*3/uL (4.8-10.8)
[2024-08-19 09:00] LABS: Estimated Average Glucose 111 mg/dL; Hemoglobin A1C 128.3597 umol/L; Hemoglobin A1c % 5.5 % (<6.0); Total Hemoglobin (HGBA1C) 3487.9927 umol/L
[2024-08-19 09:35] LABS: Alanine Aminotransferase 14 U/L (0-31); Albumin Level 3.9 g/dL (3.5-5.0); Alkaline Phosphatase 99 U/L (39-117); Anion Gap 11 (12-20); Aspartate Amino Transferase 20 U/L (5-31); Bilirubin Total 0.4 mg/dL (0.0-1.0); Blood Urea Nitrogen 16 mg/dL (9-16); Calcium 9.1 mg/dL (8.4-10.2); Carbon Dioxide 28 mmol/L (22-29); Chloride 109 mmol/L (96-108); Cholesterol 135 mg/dL (<200); Estimated Glomerular Filt Rate > 60; Glucose Fasting 100 mg/dL (60-99); HDL Cholesterol 48 mg/dL (>40); LDL Cholesterol Calculated 68 mg/dL (<100); Potassium 4.6 mmol/L (3.3-5.1); Sodium 143 mmol/L (135-145); Total Protein 7.1 g/dL (6.5-8.0); Triglycerides 98 mg/dL (<150)
[2024-08-19 09:38] LABS: TSH reflex Free T4 2.18 uIU/mL (0.32-4.0); Vitamin D 25-OH Total 44.6 ng/mL (>30)
== END 2024-08-19 08:02 | disposition home or self-care (01) ==
LOC: HO.LAB 08:01
PROVIDERS: PCP Internal Medicine; Visit Provider Internal Medicine
DX: E78.00 Pure hypercholesterolemia, unspecified (principal); R73.01 Impaired fasting glucose; D64.9 Anemia, unspecified; E55.9 Vitamin D deficiency, unspecified
CPT/HCPCS: 36415; 80053; 80061; 82306; 83036; 84443; 85025

== ENCOUNTER 2024-08-24 09:30 | Outpatient (AMB) | payer MEDICARE, SELFPAY ==
[2024-08-24 09:35] VITALS: BP 148/86; PULSE 97; O2SAT 96; BMI 27.1
--- NOTE | 2024-08-24 09:35 | MHC.PC.OV ---
Vital Signs 08/24/24 09:35 08/24/24 10:16 Height 5 ft 5 in Weight 163 lb 2 oz BMI 27.1 BP 148/86 H 140/80 H Blood Pressure Location Lt brachial Lt brachial Position Sitting Sitting Pulse 97 Pulse Source Pulse Oximeter Pulse Oximetry (%) 96 Oxygen Delivery Method Room Air Intake Visit Reasons: hyperlipidemia, HTN Trust Manager Assistant Required: No Accompanied by: Self / Same As Patient Allergies No Known Allergies Allergy (Verified 08/24/24 10:10) Medication List - Last Reconciled 08/24/24 by Preston Ruiz MD acetaminophen (Tylenol Extra Strength) 500 mg PO Q6H PRN amlodipine 2.5 mg PO DAILY atorvastatin 10 mg PO BEDTIME 90 days Tobacco use date assessed: 08/24/24 Fall risk assessment: 1 Fall in past year Last assessed Fall Risk: 08/24/24 Dental Screening Dental Screen Date: 08/24/24 Did you have a dental visit in the last 12 months?: Yes Did you have a dental problem in the last 6 months where you did not have access to dental care?: No Was dental information given to patient?: Patient has dentist HPI hyperlipidemia, HTN HPI Details Patient comes in today for her follow up visit States that she feels okay She denies any headaches or dizziness Denies any chest pains, no SOB No nausea/vomiting, no abdominal pain No change in bowel habits noted States that she has not been experiencing any issues with her right shoulder lately She had her follow up labs done a few days ago - to discuss her results [facility] Medical History Impingement syndrome of right shoulder Overweight (BMI 25.0-29.9) Osteopenia GERD without esophagitis Pure hypercholesterolemia Benign essential hypertension Surgical History History of colonoscopy History of appendectomy History of bunionectomy Family History Father Chronic mental illness Mother Diabetes Hypertension Cancer Social History Housing: House Alcohol intake: never Patient Tobacco Use Status: Former Tobacco user e-Cigarette/Vaping Use: Never Used Second Hand Smoke Exposure: Yes service: No Current occupational status: retired Cognitive needs: No Hearing needs: No Vision needs: Yes Questionnaire PHQ-9 Over the last 2 weeks, how often have you been bothered by any of the following problems? 1. Little interest or pleasure in doing things: not at all 2. Feeling down, depressed, or hopeless: not at all 3. Trouble falling or staying asleep, or sleeping too much: not at all 4. Feeling tired or having little energy: not at all 5. Poor appetite or overeating: not at all 6. Feeling bad about yourself - or that you are a failure or have let yourself or your family down: not at all 7. Trouble concentrating on things, such as reading the newspaper or watching television: not at all 8. Moving or speaking so slowly that other people could have noticed. Or the opposite - being so fidgety or restless that you have been moving around a lot more than usual: not at all 9. Thoughts that you would be better off or of hurting yourself in some way: not at all Total score: 0 Depression Screening Interpretation: Negative Depression Screening Done: Yes 27790 - PHQ-9 Billing: Yes Source: Developed by Drs. Perez Dallas, Meliza Jessica, Charli Mora and colleagues, with an educational franklin from [employer]. Thrive Questionnaire Date Thrive assessed: 08/24/24 I am a: Patient What is your living situation today?: I have a steady place to live Within the past 12 months, did the food you bought not last and you didn't have the money to get more?: I choose not to answer this question Within the past 12 months, did you worry whether your food would run out before you got money to buy more?: I choose not to answer this question Do you have trouble paying for medicines?: No Do you have trouble getting transportation to medical appointments?: No Do you have trouble paying your heating and electricity bill?: No Do you have trouble taking care of your child, family member or friend?: No Do you have trouble with day-to-day activities such as bathing, preparing meals, shopping, managing finances, etc.?: No Are you currently unemployed and looking for a job?: No Are you interested in more education?: No Please select the resources that you would like help with: None Currently or been in a relationship where the following occur: No concerns reported THRIVE Score: 0 AUDIT C Alcohol Use Questionnaire (AUDIT-C) 1. How often do you have a drink containing alcohol?: Never 3. How often do you have six or more drinks on one occasion?: Never Total Score: 0 Score Reviewed/Action Taken: Yes NISHA-7 AMB Questionnaire NISHA-7 Date NISHA - 7 assessed: 08/24/24 Feeling nervous, anxious, or on edge: 0 = Not at all Not being able to stop or control worryin = Not at all Worrying too much about different things: 0 = Not at all Trouble relaxin = Not at all Being so restless that it is hard to sit still: 0 = Not at all Becoming easily annoyed or irritable: 0 = Not at all Feeling afraid as if something awful might happen: 0 = Not at all Total NISHA-7 score (0-4 normal; 5-9 mild; 10-14 moderate; 15-21 severe): 0 Source: Developed by Drs. Perez Dallas, Meliza Jessica, Charli Mora and colleagues, with an educational franklin from [employer]. Review of Systems Const Denies chills, Denies fatigue, Denies fever(s) and Denies headache(s) ENT Denies dysphagia, Denies dizziness, Denies otalgia, Denies headache(s), Denies neck pain, Denies odynophagia, Reports tinnitus (left ear) and Denies sore throat Card Denies chest pain, Denies palpitations and Denies dyspnea Resp Denies chest congestion, Denies cough and Denies dyspnea GI Denies abdominal pain, Denies constipation, Denies dysphagia, Denies heartburn, Denies diarrhea, Denies nausea, Denies odynophagia and Denies vomiting Denies difficulty voiding, Denies nocturia, Denies dysuria and Denies urinary urgency Musc Denies back pain, Reports arthralgias (right shoulder - improving), Denies joint swelling and Denies neck pain Skin/Breast Denies rash Neuro Denies dizziness and Denies headache(s) Endo Denies fatigue and Denies palpitations Aller/Immun Reports seasonal rhinorrhea Physical exam (Primary Care) Vital Signs: Last Vital Signs Pulse 97 08/24/24 09:35 BP 148/86 H 08/24/24 09:35 Pulse Ox 96 08/24/24 09:35 Oxygen Delivery Method Room Air 08/24/24 09:35 BMI result Body Mass Index 27.1 Tobacco/Smoking Status: Tobacco use Status Tobacco use date assessed 08/24/24 08/24/24 09:37 Patient Tobacco Use Status Former Tobacco user 08/24/24 09:37 e-Cigarette/Vaping Use Never Used 08/24/24 09:37 PHQ-9: PHQ-9 Score PHQ-9: Total score 0 08/24/24 09:37 Depression Screening Interpretation: Negative Thrive Assessment: Date of Thrive Assessment Date Thrive assessed 08/24/24 08/24/24 09:37 Currently or been in a relationship where the following occur: No concerns reported Const General: no acute distress and alert HENMT Ears: TM's normal bilaterally and EAC's normal Throat: Yes posterior oropharynx normal and Yes tonsils normal (no TP congestion noted) Neck Neck: Yes supple and No lymphadenopathy Thyroid: Thyroid normal Resp Auscultation: clear to auscultation bilaterally, no rales and no wheezes Cardio Rate: regular rate Rhythm: regular rhythm Heart sounds: no murmurs GI Palpation (GI): Soft to palpation and nontender Auscultation: normal bowel sounds General: Yes no CVA tenderness Back/Spine/Pelvis Back: no CVA tenderness Skin Rashes: no rashes Extrem General: Yes no clubbing, cyanosis or edema Right upper extremity: full ROM and shoulder/upper arm Details: tenderness (minimal) Results Reviewed Results Reviewed: Laboratory Tests 08/19/24 08:16 WBC 6.6 Hgb 13.0 Hct 39.2 Plt Count 315 Sodium 143 Potassium 4.6 Creatinine 0.79 Estimated GFR > 60 Fasting Glucose 100 H Hemoglobin A1c % 5.5 Calcium 9.1 AST 20 ALT 14 Triglycerides 98 Cholesterol 135 LDL Cholesterol, Calc 68 HDL Cholesterol 48 25-OH Vitamin D Total 44.6 TSH 2.18 Coding Level of Care Code Est Pt Level 4 (60643) Complex EM visit Add On G2211 Diagnoses Pure hypercholesterolemia E78.00 Benign essential hypertension I10 Impaired fasting glucose R73.01 GERD without esophagitis K21.9 Impingement syndrome of right shoulder M75.41 Osteopenia, unspecified location M85.80 Osteopenia location: unspecified Overweight (BMI 25.0-29.9) E66.3 Additional Codes PHQ-9 - 47936 - PHQ-9 Billing: Yes ([id number]) Assessment & Plan Assessment & Plan (1) Pure hypercholesterolemia: Code(s): E78.00 - Pure hypercholesterolemia, unspecified Category: Medical Plan: Results of her labs done a few days ago reviewed and discussed with patient Reinforced low cholesterol diet Continue Atorvastatin 10 mg QD Will recheck her labs and fasting lipids in 6 months for follow-up (2) Benign essential hypertension: Code(s): I10 - Essential (primary) hypertension Category: Medical Plan: Reinforced low sodium diet - goal is systolic BP of at least 130 to 140 mm or less Continue Amlodipine 2.5 mg QD (3) Impaired fasting glucose: Code(s): R73.01 - Impaired fasting glucose Category: Medical Plan: FBS was at 100 mg/dl on her recent labs and her HgbA1c remained normal at 5.5% Reinforced low calorie diet/exercise as tolerated (4) GERD without esophagitis: Code(s): K21.9 - Gastro-esophageal reflux disease without esophagitis Category: Medical Plan: Dietary restrictions reinforced (5) Impingement syndrome of right shoulder: Comment: with AC joint arthropathy Code(s): M75.41 - Impingement syndrome of right shoulder Category: Medical Plan: Patient states that her shoulder has not really been bothering her too much lately She has been to physical therapy before but PT did not help much Shoulder x-rays done previously at [facility] reportedly revealed (+) early glenohumeral joint arthritis with inferior humeral head osteophyte and cystic changes involving the greater tuberosity She was seen at [facility] last year but she declined getting a cortisone injection into her shoulder She was recommended to continue with activity modifications and regular shoulder exercises to manage her shoulder symptoms and to reach out to [facility] again if her symptoms progress - will then consider ultrasound-guided glenohumeral joint injection Tx Follow up with [facility] as scheduled or as needed (6) Osteopenia: Code(s): M85.80 - Other specified disorders of bone density and structure, unspecified site Category: Medical Qualifiers: Osteopenia location: unspecified Qualified Code(s): M85.80 - Other specified disorders of bone density and structure, unspecified site Plan: Repeat BMD done in August 2022 revealed (+) osteopenia based on the lowest T-score value of -2.3 in the femoral neck (T-score was at -1.3 in October 2017) Have advised patient that her AP spine BMD is mostly unchanged from previous but her left femur BMD has declined significantly by 12.9% from 2018 She is again encouraged to continue to stay active and exercise regularly and continue on her Calcium and Vitamin D supplements daily Advised that due to her BMD decline, she should consider starting on medications for osteopenia Have provided patient with handout on information about Alendronate as initial Tx option - she is still undecided on whether she wants to start Tx or not at this time Will consider getting repeat BMD at her next follow up towards the end of the year (7) Overweight (BMI 25.0-29.9): Code(s): E66.3 - Overweight Category: Medical Plan: Reinforced diet/exercise as tolerated/lose weight Plan Follow up in 6 months Orders: Orders Complete Blood Count Auto Diff 6 Months D64.9 - Anemia, unspecified Lipid Panel 6 Months E78.00 - Pure hypercholesterolemia, unspecified TSH reflex Free T4 6 Months E78.00 - Pure hypercholesterolemia, unspecified UA CC w/rflx Micro + Cult 6 Months R30.0 - Dysuria Vitamin D 25-OH Total 6 Months E55.9 - Vitamin D deficiency, unspecified Comprehensive Wheeler. Panel Fast 6 Months E78.00 - Pure hypercholesterolemia, unspecified Hemoglobin A1c 6 Months R73.01 - Impaired fasting glucose
[2024-08-24 10:16] VITALS: BP 140/80
--- OUTSIDE RECORDS SUMMARY | 2024-08-24 10:47 | XMS_ITS | Clinical Summary ---
Author Organization [facility] Address [address] [place] [address] Phone Care Team Providers Care Life Assurance Representative Name Role Phone Unavailable Primary Care Provider [...]
== END 2024-08-24 10:26 | disposition home or self-care (01) ==
LOC: HO.HMCH 09:31
PROVIDERS: PCP Internal Medicine; Visit Provider Internal Medicine
DX: E78.00 Pure hypercholesterolemia, unspecified (principal); I10 Essential (primary) hypertension; R73.01 Impaired fasting glucose; K21.9 Gastro-esophageal reflux disease without esophagitis; M75.41 Impingement syndrome of right shoulder; M85.80 Other specified disorders of bone density and structure, unspecified site; E66.3 Overweight

== ENCOUNTER → 2024-08-24 09:30 | Outpatient (BNVA) | payer MEDICARE, SELFPAY | PROVIDERS: PCP Internal Medicine; Visit Provider Internal Medicine | DX: E78.00 Pure hypercholesterolemia, unspecified (principal); I10 Essential (primary) hypertension; R73.01 Impaired fasting glucose; K21.9 Gastro-esophageal reflux disease without esophagitis; M75.41 Impingement syndrome of right shoulder; M85.80 Other specified disorders of bone density and structure, unspecified site; E66.3 Overweight; Z68.27 Body mass index [BMI] 27.0-27.9, adult; Z71.3 Dietary counseling and surveillance; Z87.891 Personal history of nicotine dependence | CPT/HCPCS: 96127; 99212 ==

== ENCOUNTER 2024-11-25 11:59 | Outpatient (REF) | payer MEDICARE, SELFPAY ==
--- NOTE | ~2024-11-25 | XR_ITS ---
EXAMINATION: XR HIP, LEFT CLINICAL INFORMATION: M25.552 - Pain in left hip COMPARISON: None available. TECHNIQUE: Two views of the left hip. FINDINGS: No fracture. Alignment is anatomic. Hip joint space is maintained. Very mild degenerative arthritis. Soft tissues are unremarkable. XR/XR hip LT min 2V IMPRESSION: Very mild degenerative arthritis left hip joint. Electronically signed by: Demar Dickey MD 11/25/2024 12:21 PM EDT
--- OUTSIDE RECORDS SUMMARY | 2024-11-25 12:02 | XMS_ITS | Clinical Summary ---
Author Organization [facility] Address [address] [place] [address] Phone Care Team Providers Care Bobbin Coil Winder Name Role Phone Unavailable Primary Care Provider [...] nts (1 - 1-dose 75+ series) 2019 Falls Risk Assessment 03/09/2022 Osteoporosis Screening (Bone Density Screening) 03/09/2022 Social Influencers of Health Screening 03/09/2022 COVID-19 Vaccine ( - 2023-2 5 season) 2023 Depression Screening 04/06/2024 Influenza Vaccine (#1) 2024 HIB Vaccines Aged Out No longer [...]
--- OUTSIDE RECORDS SUMMARY | 2024-11-25 12:02 | XMS_ITS | Patient Health Record ---
Author Organization [facility] Address [address] [place] [address] Care Team Providers Care Master Planner Name Role Phone Marko Dang Jr Reason For Referral No Information Plan Of Treatment No Information
== END 2024-11-25 12:00 | disposition home or self-care (01) ==
LOC: HO.XRAY 11:59
PROVIDERS: PCP Internal Medicine; Visit Provider Internal Medicine
DX: M25.552 Pain in left hip (principal)
CPT/HCPCS: 73502

== ENCOUNTER → 2024-11-25 12:06 | Outpatient (BNV) | payer MEDICARE, SELFPAY | PROVIDERS: PCP Internal Medicine; Visit Provider Radiology Diagnostic Radiology | DX: M16.12 Unilateral primary osteoarthritis, left hip (principal) | CPT/HCPCS: 73502 ==

== ENCOUNTER 2025-02-21 08:22 | Outpatient (REF) | payer MEDICARE, SELFPAY ==
[2025-02-21 08:41] LABS: MANUAL DIFF FLAG NO
[2025-02-21 08:56] LABS: Hematocrit 41.7 % (37.0-47.0); Hemoglobin 13.8 g/dl (12.0-16.0); Imm Gran Abs Auto 0.02 X10*3/uL (0.00-0.03); Imm Gran Pct Auto 0.3 % (0.0-0.4); Lymphocytes Absolute Auto 1.7 X10*3/uL (1.2-4.9); Mean Corpuscular HGB Conc 33.1 g/dl (31.0-35.0); Mean Corpuscular Hemoglobin 31.2 pg (27.0-33.0); Mean Corpuscular Volume 94.1 fL (80.0-98.0); NRBC Abs Auto 0.000 X10*3/uL (0.0-0.012); NRBC Pct Auto 0.0 /100WBC (0.0-0.2); Platelet Count 341 X10*3/uL (160-400); Red Blood Count 4.43 X10*6/uL (4.20-5.50); White Blood Count 7.9 X10*3/uL (4.8-10.8)
[2025-02-21 09:45] LABS: Alanine Aminotransferase 15 U/L (0-31); Albumin Level 4.4 g/dL (3.5-5.0); Alkaline Phosphatase 106 U/L (39-117); Anion Gap 11 (12-20); Aspartate Amino Transferase 23 U/L (5-31); Blood Urea Nitrogen 15 mg/dL (9-16); Calcium 9.4 mg/dL (8.4-10.2); Carbon Dioxide 27 mmol/L (22-29); Chloride 108 mmol/L (96-108); Cholesterol 140 mg/dL (<200); Estimated Glomerular Filt Rate 59; HDL Cholesterol 47 mg/dL (>40); Potassium 4.4 mmol/L (3.3-5.1); Sodium 142 mmol/L (135-145); Total Protein 7.5 g/dL (6.5-8.0); Triglycerides 149 mg/dL (<150)
[2025-02-21 10:56] LABS: Appearance Urine Clear; Glucose Urine UA Negative (Negative); PH 5.5 (5.0-9.0); Specific Gravity - Urine 1.010 (1.005-1.025); UMIC TRIGGER UACC YES
== END 2025-02-21 08:23 | disposition home or self-care (01) ==
LOC: HO.LAB 08:22
PROVIDERS: PCP Internal Medicine; Visit Provider Internal Medicine
DX: R73.01 Impaired fasting glucose (principal); E78.00 Pure hypercholesterolemia, unspecified; E55.9 Vitamin D deficiency, unspecified; D64.9 Anemia, unspecified
CPT/HCPCS: 36415; 80053; 80061; 81001; 82306; 83036; 84443; 85025

== ENCOUNTER 2025-02-24 09:37 | Outpatient (AMB) | payer MEDICARE, SELFPAY ==
--- NOTE | 2025-02-24 09:52 | A.OFFPC_ITS ---
Vital Signs 02/24/25 09:53 Height 5 ft 5 in Weight 164 lb 2 oz BMI 27.3 BP 136/74 Blood Pressure Location Lt brachial Position Sitting Pulse 94 Pulse Source Pulse Oximeter Pulse Oximetry (%) 96 Oxygen Delivery Method Room Air Intake Visit Reasons: HTN, hyperlipidemia, IFG, GERD Youth Care Professional Required: No Accompanied by: Self / Same As Patient Allergies No Known Allergies Allergy (Verified 02/24/25 10:20) Medication List - Last Reconciled 02/24/25 by Preston Ruiz MD acetaminophen (Tylenol Extra Strength) 500 mg PO Q6H PRN amlodipine 2.5 mg PO DAILY atorvastatin 10 mg PO BEDTIME 90 days Tobacco use date assessed: 02/24/25 Fall risk assessment: 1 Fall in past year Last assessed Fall Risk: 02/24/25 Dental Screening Dental Screen Date: 02/24/25 Did you have a dental visit in the last 12 months?: Yes Did you have a dental problem in the last 6 months where you did not have access to dental care?: No Was dental information given to patient?: Patient has dentist HPI HTN, hyperlipidemia, IFG, GERD HPI Details Patient comes in today for her follow up visit States that she feels okay She denies any headaches or dizziness Denies any chest pains, no SOB No nausea/vomiting, no abdominal pain No change in bowel habits noted She had her follow up labs done a few days ago - to discuss her results [facility] Medical History Impingement syndrome of right shoulder Overweight (BMI 25.0-29.9) Osteopenia GERD without esophagitis Pure hypercholesterolemia Benign essential hypertension Surgical History History of colonoscopy History of appendectomy History of bunionectomy Family History Father Chronic mental illness Mother Diabetes Hypertension Cancer Social History Housing: House Alcohol intake: never Patient Tobacco Use Status: Former Tobacco user e-Cigarette/Vaping Use: Never Used Second Hand Smoke Exposure: Yes service: No Current occupational status: retired Cognitive needs: No Hearing needs: No Vision needs: Yes Questionnaire PHQ-9 Over the last 2 weeks, how often have you been bothered by any of the following problems? 1. Little interest or pleasure in doing things: not at all 2. Feeling down, depressed, or hopeless: not at all 3. Trouble falling or staying asleep, or sleeping too much: not at all 4. Feeling tired or having little energy: not at all 5. Poor appetite or overeating: not at all 6. Feeling bad about yourself - or that you are a failure or have let yourself or your family down: not at all 7. Trouble concentrating on things, such as reading the newspaper or watching television: not at all 8. Moving or speaking so slowly that other people could have noticed. Or the opposite - being so fidgety or restless that you have been moving around a lot more than usual: not at all 9. Thoughts that you would be better off or of hurting yourself in some way: not at all Total score: 0 Depression Screening Interpretation: Negative Depression Screening Done: Yes 96103 - PHQ-9 Billing: Yes Source: Developed by Drs. Perez Dallas, Meliza Jessica, Charli Mora and colleagues, with an educational franklin from [employer]. Thrive Questionnaire Date Thrive assessed: 02/24/25 I am a: Patient What is your living situation today?: I have a steady place to live Within the past 12 months, did the food you bought not last and you didn't have the money to get more?: I choose not to answer this question Within the past 12 months, did you worry whether your food would run out before you got money to buy more?: I choose not to answer this question Do you have trouble paying for medicines?: No Do you have trouble getting transportation to medical appointments?: No Do you have trouble paying your heating and electricity bill?: No Do you have trouble taking care of your child, family member or friend?: No Do you have trouble with day-to-day activities such as bathing, preparing meals, shopping, managing finances, etc.?: No Are you currently unemployed and looking for a job?: No Are you interested in more education?: No Please select the resources that you would like help with: None Currently or been in a relationship where the following occur: No concerns reported THRIVE Score: 0 AUDIT C Alcohol Use Questionnaire (AUDIT-C) 1. How often do you have a drink containing alcohol?: Never 3. How often do you have six or more drinks on one occasion?: Never Total Score: 0 Score Reviewed/Action Taken: Yes NISHA-7 AMB Questionnaire NISHA-7 Date NISHA - 7 assessed: 02/24/25 Feeling nervous, anxious, or on edge: 0 = Not at all Not being able to stop or control worryin = Not at all Worrying too much about different things: 0 = Not at all Trouble relaxin = Not at all Being so restless that it is hard to sit still: 0 = Not at all Becoming easily annoyed or irritable: 0 = Not at all Feeling afraid as if something awful might happen: 0 = Not at all Total NISHA-7 score (0-4 normal; 5-9 mild; 10-14 moderate; 15-21 severe): 0 Source: Developed by Drs. Perez Dallas, Meliza Jessica, Charli Mora and colleagues, with an educational franklin from [employer]. Review of Systems Const Denies chills, Denies fatigue, Denies fever(s) and Denies headache(s) ENT Denies dysphagia, Denies dizziness, Denies otalgia, Denies headache(s), Denies neck pain, Denies odynophagia, Reports tinnitus (left ear) and Denies sore throat Card Denies chest pain, Denies palpitations and Denies dyspnea Resp Denies chest congestion, Denies cough and Denies dyspnea GI Denies abdominal pain, Denies constipation, Denies dysphagia, Denies heartburn, Denies diarrhea, Denies nausea, Denies odynophagia and Denies vomiting Denies difficulty voiding, Denies nocturia, Denies dysuria and Denies urinary urgency Musc Denies back pain, Reports arthralgias (right shoulder and left hip - on and off), Denies joint swelling and Denies neck pain Skin/Breast Denies rash Neuro Denies dizziness and Denies headache(s) Endo Denies fatigue and Denies palpitations Aller/Immun Reports seasonal rhinorrhea Physical exam (Primary Care) Vital Signs: Last Vital Signs Pulse 94 02/24/25 09:53 BP 136/74 02/24/25 09:53 Pulse Ox 96 02/24/25 09:53 Oxygen Delivery Method Room Air 02/24/25 09:53 BMI result Body Mass Index 27.3 Tobacco/Smoking Status: Tobacco use Status Tobacco use date assessed 02/24/25 02/24/25 09:56 Patient Tobacco Use Status Former Tobacco user 02/24/25 09:56 e-Cigarette/Vaping Use Never Used 02/24/25 09:56 PHQ-9: PHQ-9 Score PHQ-9: Total score 0 02/24/25 09:56 Depression Screening Interpretation: Negative Thrive Assessment: Date of Thrive Assessment Date Thrive assessed 02/24/25 02/24/25 09:56 Currently or been in a relationship where the following occur: No concerns reported Const General: no acute distress and alert HENMT Ears: TM's normal bilaterally and EAC's normal Throat: Yes posterior oropharynx normal and Yes tonsils normal (no TP congestion noted) Neck Neck: Yes supple and No lymphadenopathy Thyroid: Thyroid normal Resp Auscultation: clear to auscultation bilaterally, no rales and no wheezes Cardio Rate: regular rate Rhythm: regular rhythm Heart sounds: no murmurs GI Palpation (GI): Soft to palpation and nontender Auscultation: normal bowel sounds General: Yes no CVA tenderness Back/Spine/Pelvis Back: no CVA tenderness Skin Rashes: no rashes Extrem General: Yes no clubbing, cyanosis or edema Right upper extremity: full ROM and shoulder/upper arm Details: tenderness (minimal) Results Reviewed Results Reviewed: Laboratory Tests 02/21/25 02/21/25 08:40 09:50 WBC 7.9 Hgb 13.8 Hct 41.7 Plt Count 341 Sodium 142 Potassium 4.4 Creatinine 0.91 Estimated GFR 59 Fasting Glucose 106 H Hemoglobin A1c % 5.4 Calcium 9.4 AST 23 ALT 15 Triglycerides 149 Cholesterol 140 LDL Cholesterol, Calc 64 HDL Cholesterol 47 25-OH Vitamin D Total 54.1 TSH 1.94 Ur Specific [place] 1.010 Urine Protein Negative Urine Glucose (UA) Negative Urine Blood Negative Urine Nitrite Negative Ur Leukocyte Esterase Trace H Coding Level of Care Code Est Pt Level 4 (43270) Diagnoses Pure hypercholesterolemia E78.00 Benign essential hypertension I10 Impaired fasting glucose R73.01 GERD without esophagitis K21.9 Impingement syndrome of right shoulder M75.41 Osteopenia, unspecified location M85.80 Osteopenia location: unspecified Overweight (BMI 25.0-29.9) E66.3 Additional Codes PHQ-9 - 90260 - PHQ-9 Billing: Yes ([id number]) Assessment & Plan Assessment & Plan (1) Pure hypercholesterolemia: Code(s): E78.00 - Pure hypercholesterolemia, unspecified Category: Medical Plan: Results of her labs done a few days ago reviewed and discussed with patient Reinforced low cholesterol diet Continue Atorvastatin 10 mg QD Will recheck her labs and fasting lipids in 6 months for follow-up (2) Benign essential hypertension: Code(s): I10 - Essential (primary) hypertension Category: Medical Plan: Reinforced low sodium diet - goal is systolic BP of at least 130 to 140 mm or less Continue Amlodipine 2.5 mg QD (3) Impaired fasting glucose: Code(s): R73.01 - Impaired fasting glucose Category: Medical Plan: FBS was at 106 mg/dl on her recent labs but her HgbA1c remained normal at 5.4% Reinforced low calorie diet/exercise as tolerated (4) GERD without esophagitis: Code(s): K21.9 - Gastro-esophageal reflux disease without esophagitis Category: Medical Plan: Dietary restrictions reinforced (5) Impingement syndrome of right shoulder: Comment: with AC joint arthropathy Code(s): M75.41 - Impingement syndrome of right shoulder Category: Medical Plan: Patient states that her shoulder has not bothered her too much lately She has been to physical therapy before but PT did not help much Shoulder x-rays done previously at [facility] reportedly revealed (+) early glenohumeral joint arthritis with inferior humeral head osteophyte and cystic changes involving the greater tuberosity She was seen at [facility] last year but she declined getting a cortisone injection into her shoulder She was recommended to continue with activity modifications and regular shoulder exercises to manage her shoulder symptoms and to reach out to [facility] again if her symptoms progress - will then consider ultrasound-guided glenohumeral joint injection Tx Follow up with [facility] as scheduled or as needed (6) Osteopenia: Code(s): M85.80 - Other specified disorders of bone density and structure, unspecified site Category: Medical Qualifiers: Osteopenia location: unspecified Qualified Code(s): M85.80 - Other specified disorders of bone density and structure, unspecified site Plan: Repeat BMD done in August 2022 revealed (+) osteopenia based on the lowest T-score value of -2.3 in the femoral neck (T-score was at -1.3 in October 2017) Have advised patient that her AP spine BMD is mostly unchanged from previous but her left femur BMD has declined significantly by 12.9% from 2018 She is again encouraged to continue to stay active and exercise regularly and continue on her Calcium and Vitamin D supplements daily Advised that due to her BMD decline, she should consider starting on medications for osteopenia Have provided patient with handout on information about Alendronate as initial Tx option - she is still undecided on whether she wants to start Tx or not at this time Will have her get a repeat BMD now for follow up (7) Overweight (BMI 25.0-29.9): Code(s): E66.3 - Overweight Category: Medical Plan: Reinforced diet/exercise as tolerated/lose weight Plan Follow up in 6 months Orders: Orders XR DEXA axial skeleton Today M85.80 - Other specified disorders of bone density and structure, unspecified site, Z78.0 - Asymptomatic menopausal state Lipid Panel 6 Months E78.00 - Pure hypercholesterolemia, unspecified UA CC w/rflx Micro + Cult 6 Months R30.0 - Dysuria Hemoglobin A1c 6 Months R73.01 - Impaired fasting glucose Complete Blood Count Auto Diff 6 Months D64.9 - Anemia, unspecified Comprehensive [place]. Panel Fast 6 Months E78.00 - Pure hypercholesterolemia, unspecified TSH reflex Free T4 6 Months E78.00 - Pure hypercholesterolemia, unspecified Vitamin D 25-OH Total 6 Months E55.9 - Vitamin D deficiency, unspecified
[2025-02-24 09:53] VITALS: BP 136/74; PULSE 94; O2SAT 96; BMI 27.3
--- OUTSIDE RECORDS SUMMARY | 2025-02-24 10:16 | XMS_ITS | Patient Health Record ---
Author Organization [facility] Address [address] [place] [address] Care Team Providers Care Scout Leaser Name Role Phone Marko Dang Jr Reason For Referral No Information Plan Of Treatment No Information
--- OUTSIDE RECORDS SUMMARY | 2025-02-24 10:16 | XMS_ITS | Clinical Summary ---
Author Organization [facility] Address [address] [place] [address] Phone Care Team Providers Care Salesperson [employer] Name Role Phone Unavailable Primary Care Provider [...] 03/09/2022 Social Influencers of Health Screening 03/09/2022 Depression Screening 04/06/2024 COVID-19 Vaccine ( - 2024-2 6 season) 2024 Influenza Vaccine (#1) 2024 HIB Vaccines Aged [...]
== END 2025-02-24 10:44 | disposition home or self-care (01) ==
LOC: HO.HMCH 09:38
PROVIDERS: PCP Internal Medicine; Visit Provider Internal Medicine
DX: E78.00 Pure hypercholesterolemia, unspecified (principal); I10 Essential (primary) hypertension; R73.01 Impaired fasting glucose; K21.9 Gastro-esophageal reflux disease without esophagitis; M75.41 Impingement syndrome of right shoulder; M85.80 Other specified disorders of bone density and structure, unspecified site; E66.3 Overweight

== ENCOUNTER → 2025-02-24 09:37 | Outpatient (BNVA) | payer MEDICARE, SELFPAY | PROVIDERS: PCP Internal Medicine; Visit Provider Internal Medicine | DX: E78.00 Pure hypercholesterolemia, unspecified (principal); R73.01 Impaired fasting glucose; I10 Essential (primary) hypertension; K21.9 Gastro-esophageal reflux disease without esophagitis; M75.41 Impingement syndrome of right shoulder; M85.80 Other specified disorders of bone density and structure, unspecified site; E66.3 Overweight; Z68.27 Body mass index [BMI] 27.0-27.9, adult; Z71.3 Dietary counseling and surveillance | CPT/HCPCS: 96127; 99212 ==